=== PATIENT | female | born 1955 | race Caucasian/White ===

== ENCOUNTER → 2021-08-03 12:28 | Outpatient (CLI) | payer OTHER, SELFPAY ==
--- NOTE | 2021-08-03 | DI.MRI.S_ITS ---
PROCEDURE: MR CERVICAL SPINE WO CON INDICATIONS: Paresthesia of skin TECHNIQUE: Noncontrast sagittal T1 spin echo and T2 fast spin echo, sagittal STIR, foraminal oblique sagittal T2 fast spin echo, and axial gradient echo or T2 fast spin echo through the cervical spine. COMPARISON: None. FINDINGS: Image quality: Excellent. Alignment and Curvature: There is loss of normal cervical lordosis. There is mild grade 1 anterolisthesis of C3 on C4 , C4 on C5, and C7 on T1. Mild grade 1 retrolisthesis of C5 on C6 and C6 on C7. Bone Marrow: Marrow demonstrates normal overall signal. Moderate reactive signal throughout the endplates of the mid/lower cervical spine. Spinal Cord: Visualized spinal cord has normal size and signal. No cerebellar tonsillar herniation. Paraspinous Soft Tissues: No paravertebral masses. Prevertebral soft tissues are normal in thickness. C2-C3: Mild disc height loss. Moderate disc desiccation. Mild diffuse disc bulge. Mild facet and uncovertebral hypertrophy bilaterally. Mild canal stenosis. Mild left greater than right foraminal stenosis. C3-C4: Moderate disc desiccation. Mild disc height loss and diffuse disc bulge. Moderate facet and uncovertebral hypertrophy bilaterally. Moderate canal stenosis. Severe left and moderate right foraminal stenosis. Left C4 nerve root compression. C4-C5: Mild disc height loss. Moderate disc desiccation. Mild diffuse disc bulge/osteophyte. Moderate facet and uncovertebral hypertrophy bilaterally. Moderate canal stenosis. Severe bilateral foraminal stenosis with bilateral C5 nerve root compression. C5-C6: Moderate disc height loss and desiccation. Moderate diffuse disc bulge. Moderate facet and uncovertebral hypertrophy bilaterally. Moderate to severe canal stenosis. Mild cord flattening. Severe bilateral foraminal stenosis with bilateral C6 nerve root compression. C6-C7: Moderate disc height loss and desiccation. Moderate diffuse disc bulge. Moderate facet and uncovertebral hypertrophy bilaterally. Moderate canal stenosis. Severe bilateral foraminal stenosis. Bilateral C7 nerve root compression. C7-T1: Moderate disc height loss and desiccation. Mild diffuse disc bulge. Mild facet and uncovertebral hypertrophy bilaterally. Mild canal stenosis. Moderate bilateral foraminal stenosis. IMPRESSION: 1. Multilevel degenerative disc and facet disease, as well as uncovertebral hypertrophy. 2. Multilevel canal stenoses, worst at C5-C6, where there is mild cord flattening. 3. Multilevel foraminal stenoses, worst at C3-C4, C4-C5, C5-C6, and C6-C7 where there is associated intraforaminal nerve root compression. Dictated by: Rene Morfin M.D. on 08/03/2021 at 14:13 Approved by: Rene Morfin M.D. on 08/03/2021 at 14:17
== END ==
PROVIDERS: Referring Provider Internal Medicine; Visit Provider Internal Medicine
DX: M50.31 Other cervical disc degeneration, high cervical region (principal); M48.02 Spinal stenosis, cervical region; R20.2 Paresthesia of skin
CPT/HCPCS: 72141

== ENCOUNTER → 2021-11-01 10:03 | Outpatient (CLI) | payer OTHER, SELFPAY ==
--- NOTE | 2021-11-01 10:22 | DI.CT.S_ITS ---
PROCEDURE: CT LUMBAR SPINE WO CON INDICATIONS: Spinal stenosis, lumbar region TECHNIQUE: Noncontrast 3 mm thick sections acquired from the T12 level to the sacrum. Sagittal and coronal reformats were constructed. For radiation dose reduction, the following was used: automated exposure control. COMPARISON: [facility], MR, MR LUMBAR SPINE WITH/WITHOUT CONTRAST, 01/14/2020, 10:41. FINDINGS: Image quality: Excellent. Bones: There is normal bony alignment. No acute vertebral body compression fractures. No suspicious lytic or blastic bony lesions. No pars defects. Degenerative endplate changes noted particularly at L4-5. Grade 1 anterior spondylolisthesis noted at L3-4, degenerative. Convex left thoracolumbar scoliosis present. T12-L1: Disc height is preserved. No central or foraminal stenosis L1-L2: Disc height is preserved. Minor circumferential disc bulge results in mild central stenosis. No foraminal stenosis L2-L3: Disc space narrowing with circumferential disc bulge and hypertrophic facet joints results in moderate central stenosis. Moderate bilateral foraminal stenosis. L3-L4: Disc space narrowing with circumferential disc bulge and hypertrophic facet joints results in severe central stenosis. Moderate right and severe left foraminal stenosis L4-L5: Disc space narrowing and circumferential disc bulge with hypertrophic facet joints and ligamentum flavum hypertrophy results in severe central stenosis. Severe left and moderate right foraminal stenosis. L5-S1: Disc space narrowing with hypertrophic ligamentum flavum results in moderate central stenosis. Moderate right and mild left foraminal stenosis Soft tissues: No retroperitoneal masses or hematomas. Visualized aorta is normal in caliber. IMPRESSION: 1. Multilevel degenerative disc disease and arthropathy results in varying degrees of central and foraminal stenosis including severe central stenosis at L4-5, L3-4, and moderate central stenosis at L2-3 Approved by: Reddy Jean Baptiste M.D. on 11/01/2021 at 12:53
== END ==
PROVIDERS: PCP Internal Medicine; Referring Provider Physician Assistant; Visit Provider Physician Assistant
DX: M48.062 Spinal stenosis, lumbar region with neurogenic claudication (principal); M48.07 Spinal stenosis, lumbosacral region; M47.816 Spondylosis without myelopathy or radiculopathy, lumbar region; M51.36 Other intervertebral disc degeneration, lumbar region
CPT/HCPCS: 72131

== ENCOUNTER → 2021-11-10 09:44 | Outpatient (CLI) | payer OTHER, SELFPAY ==
[2021-11-10 11:38] LABS: COVID19 -Nasal RAPID Negative (Negative)
== END ==
PROVIDERS: PCP Internal Medicine; Visit Provider Family Medicine Sleep Medicine
DX: Z20.822 Contact with and (suspected) exposure to COVID-19 (principal)
CPT/HCPCS: 87635; C9803

== ENCOUNTER 2021-11-13 06:29 | Day surgery (SDC) | payer OTHER, SELFPAY ==
[2021-11-06 09:49] VITALS: BMI 20.8
[2021-11-13] VITALS (17 sets, daily range): BP systolic 109–149; BP diastolic 50–80; PULSE 66–88; RESP 12–20; TEMP 35.8–37.1; O2SAT 92–100; BMI 20.8
--- NOTE | 2021-11-13 | DI.RAD.S_ITS ---
PROCEDURE: XR LUMBAR SPINE 2-3V INDICATIONS: L3-4 L4-5 TLIF TECHNIQUE: 2 spot fluoroscopic intraoperative images of the lumbar spine were acquired. COMPARISON: [facility], CT, CT LUMBAR SPINE WO CON, 11/01/2021, 10:19. FINDINGS: Spot fluoroscopic intraoperative images demonstrate posterior fusion hardware extending from L3 through L5 with pedicle screws and interbody rods as well as disc spacers. IMPRESSION: Intraoperative images demonstrate posterior fixation hardware at the L3 through L5 levels. Dictated by: Leonard Lopez M.D. on 11/13/2021 at 17:02 Approved by: Leonard Lopez M.D. on 11/13/2021 at 17:04
--- NOTE | 2021-11-13 07:30 | SUR.PREOP ---
Spoke to Dr Nichole in OR#. Pt took 30mof Oxycontin this am when she normally would take 40mg. Pt with 15 year history of narcotic use. Pt also uses Advair and Albuterol and did not use them this morning. Vibha ordered.
[2021-11-13] MEDS: OXYCODONE ER 10 MG TAB PO (07:43)
[2021-11-13] MEDS: ALBUTEROL/IPRATROPIUM 3 ML AMPUL INH (07:43)
[2021-11-13] MEDS: ACETAMINOPHEN 325 MG TABLET 975 MG PO (07:43)
[2021-11-13] MEDS: LACTATED RINGERS 1,000 ML 42 ML IV ×2 (07:52→11:10)
--- NOTE | 2021-11-13 07:53 | PM.PREOP ---
Pre-operative Note COVID-19 COVID-19 status: Negative Result date/Date tested (Pos, Neg/Pending): 11/12/21 Criteria for continued procedure: Expected advancement of disease process, Possibility delay results in more complex future surgery or treatment, Increased loss of function, Continuing or worsening of significant or severe pain, Deterioration of the patient's condition or overall health and Delay expected to result in less-positive ultimate med/surg outcome Interval Note History & Physical reviewed/Exam performed by Physician: Yes Changes to H&P: No
--- NOTE | 2021-11-13 08:03 | SUR.OPER ---
Prone on spine table, head in foam head support, padded chest and pelvic supports, gel pad at knees, lower legs supported by pillows; nipples, genitalia and toes free of pressure, arms secured on foam padded arm boards at <90 degrees abduction. Tape over blanket at thigh secured to table.
[2021-11-13] MEDS: CEFAZOLIN 2 GM/20 ML SYRINGE IV ×2 (08:24→17:14)
[2021-11-13] MEDS: BUPIVACAINE 0.25% (PF) 60 ML, EPINEPHrine 0.3 MG INJ (08:55)
[2021-11-13] MEDS: BUPIVACAINE LIPOSOME 266 MG/20 ML VIAL INJ (12:00)
--- NOTE | 2021-11-13 12:07 | P.OP_ITS ---
Operative Date/Time/Diagnoses Date of procedure: 11/13/21 Time of procedure: 08:20 Pre-op diagnosis: 1. L3-4, L4-5 spinal stenosis with neurogenic claudication 2. L3-4, L4-5 spondylosis with radiculopathy Post-op diagnosis: same Procedure & Clinicians Procedure: 1. L3-4, L4-5 Postero-lateral and posterior interbody fusion 2. L3-4, L4-5 interbody cage placement. 3. L3-4, L4-5 decompressive laminectomy with bilateral facetecomies 4. L3-4, L4-5 Posterior segmental instrumentation 5. [place] of bone marrow from iliac crest 6. Utilization of microsurgical technique and operating microscope 7. Utilizations of robotic assisted navigation Same procedure as scheduled: Yes Indications: Patient has been having chronic back pain and worsening lumbar radiculopathy. Patient failed multiple conservative management with worsening pain weakness and numbness in her lower extremity. Patient has been having difficulty performing activity of daily living. After discussing risks benefits of treatment options, patient elected proceed with surgery. Surgeon: Margarita Fuller Multifold Operator: Ángela Almendarez Click Yes if Unassisted: No Anesthesia Type: General Operative Notes Closure Type: primary Specimen(s): none sent Prosthetic devices, grafts, tissues, transplants, or devices: Globus CREO MIS screws, RIse cages Applied: catheter Estimated Blood Loss (mL): 150 Blood products transfused: none Procedure in detail: Patient was seen in the preoperative area. Risks and benefits of the surgery was discussed with the patient. Informed consent was obtained from the patient and placed in the chart. Surgical site was marked. Patient was taken to the operative room. General anesthesia was administered. Prophylactic antibiotic was given to the patient less than 30 min before the incision was made. Patient was placed into a prone position on the Adin table. Patient's back was then prepped and draped in the sterile fashion. Time-out was performed at this time. After patient was prepped and draped, patient's PSIS was palpated and marked bilaterally. Small 1 cm incision was made over the PSIS for placement of the reference probes. Two trocar was placed into the PSIS 1 on each side. The reference probe was attached to the trocar of the reference apparatus. At this time the C-arm imaging was used to confirm AP and lateral of L3, L4-L5 vertebrae and merged the C-arm imaging using the [employer] robotic navigation system with the CT of the lumbar spine. After successful merging was completed and confirmed, skin marker was used to zaira out the skin incision using the [employer] robotic arm. Bilateral incision was made at this time. Pre templated trajectory was used and guided using the [employer] robotic navigation system for bilateral L3 L4, L5 pedicle screw placement. This was done by using the robotic arm to guide the high-speed bur to make a cortical entry point. Next a drill was placed also using the robotic arm and guided using the navigation system drilling partially through bilateral L3, L4, L5 pedicles. Next L3, L4, L5 pedicle screws it was pre templated and measured was placed onto the power train driver and inserted into the pedicles bilaterally. After all 6 screws were placed C-arm imaging was taken of both AP and lateral to confirm the placement. Excellent placement of the screws were confirmed and a matched precisely with the pre planned screw placement using the navigation system. MARs retractor was inserted using [employer] guidence. Globus MARS retractors was placed inside the incision and docked onto the L3, L4 lamina. Using microsurgical technique and operating microscope, a L3, L4 laminectomy and L3-4, L4-5 facetectomy was performed using a [place] rongeur. Patient was found have severe lateral recess and neural foramen stenosis which was fully de compressed after the laminectomy facetectomy. More than 75% of the facets were removed during the process of decompression rendering L3-4, L4-5 level grossly unstable and required a fusion procedure at the same time. The disc space at L3-4, L4-5 was identified, and a total diskectomy was performed at L3-4, L4-5 level. The endplates were decorticated using a rasp and shaver. The total diskectomy and decortication was performed at L3-4, L4-5 level in order to to accomplish a L3-4, L4-5 fusion. The local bone from the laminectomy and facetectomy was saved for local bone grafting. After the total diskectomy and decortication was completed, Trifecta bone graft material was combined with local bone that was harvested earlier. At this time, a separate skin is incision was made over the iliac crest. A Jamshidi needle was inserted into the iliac crest through a separate skin incision. 5 cc of bone marrow aspiration was obtained through the separate skin incision using a Jamshidi needle from the iliac crest. The bone marrow aspiration was combined with local bone and the Trifecta bone grafting material. The bone grafting material was placed into the L3-4, L4-5 interbody space along with expandable cages. One cage each was inserted into the L3-4 L4-5 interbody space along with bone graft material. The cage was expanded to its maximum height using the torque limiting screwdriver. The disc preparation as well as the cage insertion were also performed under navigation guidance. After the cage was placed, AP and lateral C-arm imaging was taken to confirm placement of the cage and excellent position was confirmed. Globus MARS retractor was inserted and docked onto the L3-4, L4-5 posterolateral gutter on the right side. Using the power drill, posterior-lateral decorticat ion was performed at L3-4, L4-5 level until bleeding cortical bone was identified. The remaining bone grafting material was placed into the L3-4, L4-5 posterior lateral gutter he order to accomplish posterolateral fusion at the L3- 4, L4-5 level. At this time the tulips were attached to the L3, L4-L5 pedicle screw shanks. After measuring the length of the rods, they were inserted into the tulips of the pedicle screws and locked in place using locking caps and torque limiting screwdriver bilaterally. Total 6 caps and 2 titanium rods was used in order to complete the posterior instrumentation construct. After all the hardware was placed, and confirmed with AP and lateral C-arm imaging, the wound was then irrigated with sterile normal saline and packed with Ray-Leopoldo gauze for 3 min to accomplish hemostasis. After the gauze was removed the deep fascia was closed with #1 Vicryl suture. The subcutaneous layer was closed with 2-0 Vicryl. The skin was closed with skin cindy. Patient tolerated the procedure well. There were no complications. Neuro monitoring system was used to monitor patient's neurologic status throughout entire procedure. There was no disturbance of the neural monitoring signals throughout the case. Complications: none Post-operative Condition: stable Disposition: PACU Plan for aftercare: Admit to inpatient hospital
[2021-11-13] MEDS: HYDROMORPHONE 2 MG INJ IV (12:50)
[2021-11-13] MEDS: hydrOXYzine 50 MG/ML INJ IM (12:51)
[2021-11-13] MEDS: OXYCODONE IR 5 MG TABLET 10 MG PO (12:52)
[2021-11-13] MEDS: OXYCODONE ER 10 MG TAB 30 MG PO (17:13)
[2021-11-13] MEDS: SODIUM CHLORIDE 0.9% 1,000 ML 100 ML IV (17:38)
--- NOTE | 2021-11-13 17:40 | PT-IP ANOTE ---
Checked on pt for PT eval ~1500 and pt was too groggy to meaningfully participate. Will follow up Saturday AM.
[2021-11-13] MEDS: hydrOXYzine pamoate 25 MG CAPSULE PO (17:43)
[2021-11-13] MEDS: HYDROMORPHONE 0.5 MG INJ IV ×2 (18:59→21:01)
[2021-11-13] MEDS: DOCUSATE 100 MG CAPSULE PO (20:40)
[2021-11-13] MEDS: SENNOSIDES 8.6 MG TABLET 17.2 MG PO (20:41)
[2021-11-13] MEDS: diphenhydrAMINE 50 MG/ML VIAL 25 MG IV (20:41)
[2021-11-13] MEDS: OXYCODONE IR 10 MG TABLET PO (20:41)
[2021-11-13] MEDS: MONTELUKAST 10 MG TABLET PO (21:18)
[2021-11-13] MEDS: BUDESONIDE 0.5 MG/2 ML NEB INH (22:14)
[2021-11-13] MEDS: ALBUTEROL 2.5 MG/3 ML NEB (ADULT) INH (22:14)
[2021-11-14] VITALS (11 sets, daily range): BP systolic 110–157; BP diastolic 62–77; PULSE 66–78; RESP 17–19; TEMP 36.6–37.9; O2SAT 92–96
[2021-11-14] MEDS: hydrOXYzine pamoate 25 MG CAPSULE PO ×3 (00:01→14:39)
[2021-11-14] MEDS: ACETAMINOPHEN 325 MG TABLET 650 MG PO ×3 (00:01→14:38)
[2021-11-14] MEDS: HYDROMORPHONE 0.5 MG INJ IV ×3 (00:01→11:54)
[2021-11-14] MEDS: OXYCODONE IR 10 MG TABLET PO ×3 (00:02→10:01)
[2021-11-14] MEDS: CEFAZOLIN 2 GM/20 ML SYRINGE IV (00:02)
[2021-11-14] MEDS: SODIUM CHLORIDE 0.9% 1,000 ML 100 ML IV (04:09)
[2021-11-14 05:08] LABS: Hematocrit 31.7 % (36-46); Hemoglobin 10.7 g/dL (12.0-16.0)
[2021-11-14] MEDS: LEVOTHYROXINE 100 MCG TABLET PO (06:54)
--- NOTE | 2021-11-14 07:18 | PM.PNPO.1 ---
Subjective Subjective Date Patient Seen: 11/14/21 Time Patient Seen: 07:18 Interval history: Patient's pain is been severe overnight. Denies fever or chills. No nausea or vomiting. Exam Vital Signs (past 8 hours): - 11/14/21 01:00 11/14/21 05:00 Temperature 97.9 F 98.8 F Pulse Rate 66 68 Respiratory Rate 18 18 Blood Pressure 132/68 141/74 H Pulse Oximetry 96 96 Oxygen Delivery Method Room Air Oxygen Flow Rate 0 Narrative Exam Narrative: 66-year-old female resting comfortably in bed in no apparent distress. Dressing is Clean, dry, intact.. Motor functions intact bilateral lower extremities. Const General: cooperative Orientation: alert Resp Effort & Inspection: normal respiratory effort and able to speak in complete sentences Objective Labs Result Diagrams: 11/14/21 04:42 Labs: Laboratory Results - last 24 hr 11/14/21 04:42 Hgb 10.7 L Hct 31.7 L PFSH Medical History Asthma Chronic, continuous use of opioids COPD (chronic obstructive pulmonary disease) Current every day smoker Depression Esophageal spasm GERD (gastroesophageal reflux disease) History of alcoholism History of left heart catheterization (08/02/21) HTN (hypertension) Hyponatremia Hypothyroid Infected tooth (11/03/21) Lung abnormality (2007) Other secondary scoliosis, lumbar region Palpitations RBBB (right bundle branch block with left anterior fascicular block) Spinal stenosis Spondylolisthesis Suspected sleep apnea Surgical History History of surgery on left wrist (2014) Social History household members: spouse and children Smoking Status: Current every day smoker alcohol intake: current Assessment & Plan Post-op Postoperative Procedures: Procedures Operation Date: 11/13/21 07:45 Actual Procedure Side Surgeon p L3-4, L4-5 TLIF w. posterior instrumentation-Robot Margarita Fuller MD Postoperative day: 1 Postoperative status: marginal pain control Postoperative status narrative: Stable Postoperative plan: routine post-op care Postoperative plan narrative: Mobilize as physical therapy Multimodal pain management Disposition home today or tomorrow
--- NOTE | 2021-11-14 08:04 | PC.NURSE ---
s/p tlif. patient + CSM checks, reports 8-10/10 BTP thru the noc. covered pain w/ prn dilauded, oxy and tylenol. SCD's applied, dressing to lower spine is CDI. IVF, no n/v. reports slight tingling to left upper thigh. states this is slowly improving thru the NOC.
[2021-11-14] MEDS: DOCUSATE 100 MG CAPSULE PO (08:37)
[2021-11-14] MEDS: METOPROLOL ER 25 MG TABLET PO (08:37)
[2021-11-14] MEDS: AMLODIPINE 5 MG TABLET PO (08:37)
[2021-11-14] MEDS: MAGNESIUM OXIDE 400 MG TABLET PO (08:37)
[2021-11-14] MEDS: LORATADINE 10 MG TABLET PO (08:37)
[2021-11-14] MEDS: OXYCODONE ER 20 MG TAB 40 MG PO (08:38)
[2021-11-14] MEDS: MAGNESIUM HYDROXIDE 30 ML UDC PO (09:01)
[2021-11-14] MEDS: BUDESONIDE 0.5 MG/2 ML NEB INH (09:13)
[2021-11-14] MEDS: ALBUTEROL 2.5 MG/3 ML NEB (ADULT) INH ×2 (09:14→13:44)
--- NOTE | 2021-11-14 09:37 | PT.IIE ---
Current Diagnoses Other secondary scoliosis, lumbar region (11/13/21) Spondylolisthesis, lumbar region (11/13/21) Spinal stenosis, lumbar region with neurogenic claudication (11/13/21) Surgery Performed Operation Date: 11/13/21 07:45 Actual Procedures p L3-4, L4-5 TLIF w. posterior instrumentation-Robot - Margarita Fuller MD Medical History (Last Reviewed 11/14/21 @ 07:19 by Jas Lynn PA-C) Asthma Chronic, continuous use of opioids COPD (chronic obstructive pulmonary disease) Current every day smoker Depression Esophageal spasm GERD (gastroesophageal reflux disease) History of alcoholism History of left heart catheterization (08/02/21) HTN (hypertension) Hyponatremia Hypothyroid Infected tooth (11/03/21) Lung abnormality (2007) Other secondary scoliosis, lumbar region Palpitations RBBB (right bundle branch block with left anterior fascicular block) Spinal stenosis Spondylolisthesis Suspected sleep apnea Physical Therapy Inpatient Evaluation/Re-Eval M1 PT/OT-IP Prior Functional Status Start: 11/14/21 08:15 Freq: NEEDED Status: Active Protocol: Document 11/14/21 09:37 AW (Rec: 11/14/21 10:46 AW [id number]) Medical Review Prior Functional Status Medical History Reviewed Yes Communication WNL. Pt is an effective verbal communicator. Mobility and Gait Pt reports independent mobility without assistive device. Activities of Daily Living and IADL's Independent. Pt drives. Social History Household Members spouse,family,children Living Arrangements House Number of Floors (Floors) Two Floors Number of Stairs To Enter/Railing? 7 TRENT with wide B rails at back entrance. Pt stays on the main/scow hand. Home Environment Standard Height Toilet,High Toilet,Walk in Shower,Built-In Shower Seat Home Equipment Four Wheel Walker,Straight Cane,Manual Wheelchair,Hand Held Shower,Long Handled Sponge,Long Handled Shoe Horn, Biodiesel Division Manager,Sock Aid Additional Social History Comment Pt lives with her spouse, Sixto, adult children (ages 18 and 22), and her sister, Melissa . She states her bed is tall and she sometimes needs a step stool to get in. She also has a recliner. M2 PT-IP Current Condition Start: 11/14/21 08:15 Freq: NEEDED Status: Active Protocol: Document 11/14/21 09:37 AW (Rec: 11/14/21 10:46 AW [id number]) Physical Therapy Current Condition Current Condition Evaluation Date 11/14/21 Treatment Diagnosis s/p L3-4 L4-5 TLIF; difficulty in walking Onset Date 11/13/21 M3 PT-IP Subjective Start: 11/14/21 08:15 Freq: NEEDED Status: Active Protocol: Document 11/14/21 09:37 AW (Rec: 11/14/21 10:46 AW [id number]) Subjective Physical Therapy Visit Type Type Initial Evaluation Visit Start Time 09:15 Visit Stop Time 09:37 Total Visit Minutes 22 Notes Co-eval with OT for pt energy conservation and high reported pain level. Physical Therapy Visit Comments Patient Comments Pt is willing to participate with PT Patient Goals Return home with family support Therapy Pain Assessment Pain When Pain Assessed At Rest Pain Present Pain Present Pain Reported Location Lower Back Intensity 8 Scale Used reduced to 7/10 after mobility Pain Management Techniques Apply Cold,Distraction, Modification of Treatment,Re- positioning,Timing of Activity with Medications M4 PT-IP Mobility and Gait Start: 11/14/21 08:15 Freq: NEEDED Status: Active Protocol: Document 11/14/21 09:37 AW (Rec: 11/14/21 10:46 AW [id number]) PT-Bed Mobility Assessment Rolling Type of Rolling Log Rolling,Roll to Right Level of Assist Minimal Assistance,1 Person Assistance Supine to Sit Supine to Sit Minimal Assistance,1 Person Assistance Scooting Scooting to Edge of Bed Standby Assistance PT-Transfer Assessment Sit to and From Stand Sit to and from Stand Minimal Assistance,1 Person Assistance,Use of Upper Extremities Equipment Transfer Assistive Device Gait Belt,Front Wheeled Walker Orthotic/Prosthetic Devices or Brace: No Transfers Transfer Destination Chair Transfer Technique Stand Step Pivot Transfer Ability Level of Assist Minimal Assistance,1 Person Assistance,Use of Upper Extremities Comments Mobility Comments Pt was lying in bed as PT and OT arrived. BP 134/71 HR 79. PT instructed pt on post op precautions and log roll technique. Pt needed min A to roll to her right side and sit up EOB. She was able to scoot forward and then she stood min A with FWW for support. She shifted weight laterally and did not appreciate any strength difference side to side. She transferred to the chair min A and cues for hip hinge on descent. Pt was able to scoot back and forth on the chair. She stood again min A and used FWW to walk in the room CGA, stopping at the sink for hygiene care before returning to the chair. Pt was left with OT for further assessment. Gait Assessment Gait Gait Assistance Required: Contact Guard Assist Distance (Feet) 15 Assistive Devices Assistive Device Gait Belt,Front Wheeled Walker Orthotic/Prosthetic Devices or Brace: No Gait Deviations General Gait Pattern Antalgic,Decreased Stride Length,Decreased Feet Clearance Factors Limiting Gait Function Factors Limiting Gait Function Decreased Activity Tolerance, Decreased Strength,Limited Range of Motion,Pain Comments Gait Comments Gait was antalgic but functional. Pt limited in ambulation by pain. Stair Climbing Assessment Comments Stair Climbing Comments Not assessed. Pt will need to do stair training before discharge. PT-Balance Assessment Sitting Balance and Reactions Static Sitting Balance Ability Good Dynamic Sitting Balance Ability Good Standing Balance and Reactions Static Standing Balance Ability Good Dynamic Standing Balance Ability Fair Device Used FWW M5 PT-IP Objective Assessments Start: 11/14/21 08:15 Freq: NEEDED Status: Active Protocol: Document 11/14/21 09:37 AW (Rec: 11/14/21 10:46 AW [id number]) Orientation Orientation/Cognition Level of Alertness Alert Orientation Name,Day of Week,Place, Situation Language Function Ability No Deficits Noted Safety Awareness Understands Safety Issues Memory Description No Deficits Noted Gross Range of Motion Lower Extremity ROM Assessment Within Functional Limits Strength Lower Extremity Strength Assessment Within Functional Limits Sensation Assessment Sensation Gross Sensation WNL Muscle Tone Muscle Tone WNL Yes M6 PT-IP Treatment Start: 11/14/21 08:15 Freq: NEEDED Status: Active Protocol: Document 11/14/21 09:37 AW (Rec: 11/14/21 10:46 AW [id number]) Physical Therapy Treatment Education Education Provided Precautions,Weight Bearing Status,Post-Op Packet,Safety Other Treatments Other Treatment Performed Educated pt extensively on back precautions, log roll, and recommendation for use of FWW at home. M7 PT-IP Assessment and Plan Start: 11/14/21 08:15 Freq: NEEDED Status: Active Protocol: Document 11/14/21 09:37 AW (Rec: 11/14/21 10:46 AW [id number]) PT Summary Assessment and Plan Potential Rehabilitation Potential Good Status of Condition at Evaluation Evolving Summary Impairments Pain,ROM,Strength,Balance,Bed Mobility,Transfers,Gait, Activity Tolerance Assessment Summary Belkis is a 66 yo woman seen for PT evaluation on POD1 following L3-4 L4-5 TLIF. She is independent in all regards at baseline. She required min assist for bed mobility, transfers, and short distance gait with FWW during this assessment. She has her family at home to assist. PT anticipates she will be safe to discharge home with assist once medically stable. She must clear stair training and would benefit from caregiver training prior to discharge. Goals Bed Mobility Goal Standby Assistance Transfer Goal Standby Assistance,Front Wheeled Walker Gait Goal Standby Assistance,Front Wheel Walker Gait Distance 100 Other Goals - up/down 7 steps with unilaterl rail CGA Days to Meet Goals 3 Frequency of Treatment Frequency Of Treatment Twice a Day Treatment Plan Physical Therapy Treatment Plan Bed Mobility Training,Transfer Training,Gait Training, Therapeutic Exercise,Balance Retraining,Post Op Education, Discharge Planning,Hot or Cold Pack,Neuromuscular Re-ed Other Recommendations and Next Treatment review precautions; gait with Focus FWW; stairs with spouse when able Precautions Lumbar Precautions Log Roll,No Twisting,Limit Bending,Lifting Restriction of 10 lbs,Gait Belt above Incisional Area Recommendations To Nursing Amount of Assist Needed 1 Person Assist Discharge Recommendations PT Discharge Recommendations Home with Assistance Equipment Needed for Home Before FWW Discharge Transportation Needs at Discharge Private Vehicle
--- NOTE | 2021-11-14 09:49 | OT.IP.EVAL ---
Current Diagnoses Other secondary scoliosis, lumbar region (11/13/21) Spondylolisthesis, lumbar region (11/13/21) Spinal stenosis, lumbar region with neurogenic claudication (11/13/21) Surgery Performed Operation Date: 11/13/21 07:45 Actual Procedures p L3-4, L4-5 TLIF w. posterior instrumentation-Robot - Margarita Fuller MD Past Medical History (Last Reviewed 11/14/21 @ 12:18 by Jas Lynn PA-C) Asthma Chronic, continuous use of opioids COPD (chronic obstructive pulmonary disease) Current every day smoker Depression Esophageal spasm GERD (gastroesophageal reflux disease) History of alcoholism History of left heart catheterization (08/02/21) History of surgery on left wrist (2014) HTN (hypertension) Hyponatremia Hypothyroid Infected tooth (11/03/21) Lung abnormality (2007) Other secondary scoliosis, lumbar region Palpitations RBBB (right bundle branch block with left anterior fascicular block) Spinal stenosis Spondylolisthesis Suspected sleep apnea Surgical History (Last Reviewed 11/14/21 @ 12:18 by Jas Lynn PA-C) History of surgery on left wrist (2014) Occupational Therapy Inpatient Evaluation/Re-Eval M1 PT/OT-IP Prior Functional Status Start: 11/14/21 08:15 Freq: NEEDED Status: Active Protocol: Document 11/14/21 09:37 AW (Rec: 11/14/21 10:46 AW [id number]) Medical Review Prior Functional Status Medical History Reviewed Yes Communication WNL. Pt is an effective verbal communicator. Mobility and Gait Pt reports independent mobility without assistive device. Activities of Daily Living and IADL's Independent. Pt drives. Social History Household Members spouse,family,children Living Arrangements House Number of Floors (Floors) Two Floors Number of Stairs To Enter/Railing? 7 TRENT with wide B rails at back entrance. Pt stays on the main/entry level software engineer. Home Environment Standard Height Toilet,High Toilet,Walk in Shower,Built-In Shower Seat Home Equipment Four Wheel Walker,Straight Cane,Manual Wheelchair,Hand Held Shower,Long Handled Sponge,Long Handled Shoe Horn, Merchandising Professor,Sock Aid Additional Social History Comment Pt lives with her spouse, Sixto, adult children (ages 18 and 22), and her sister, Melissa . She states her bed is tall and she sometimes needs a step stool to get in. She also has a recliner. M2 OT-IP Current Condition Start: 11/14/21 12:18 Freq: Status: Active Protocol: Document 11/14/21 09:15 [facility] (Rec: 11/14/21 12:30 [facility] [id number]) Occupational Therapy Current Condition Current Condition Evaluation Date 11/13/21 Treatment Diagnosis S/p L3-4, L4-5 TLIF Diagnosis Onset Date 11/13/21 Post Operative Precautions Lumbar Precautions Log Roll,No Twisting,Limit Bending,Lifting Restriction of 10 lbs,Gait Belt above Incisional Area M3 OT- IP Subjective and Pain Start: 11/14/21 12:18 Freq: Status: Active Protocol: Document 11/14/21 09:15 [facility] (Rec: 11/14/21 12:30 [facility] [id number]) OT- Subjective Occupational Therapy Visit Type Type Initial Evaluation Visit Start Time 09:15 Visit Stop Time 09:49 Total Visit Minutes 34 Occupational Therapy Visit Comments Patient Comments Pt agreed to get up for OT eval. Pt's present in the room. Patient/Caregiver Goals TO go home. OT Pain Assessment Pain When Pain Assessed At Rest Pain Present Pain Present Pain Reported Location Lower Back Intensity 8 Scale Used Numeric (0 - 10) M4 OT- IP ADL's Start: 11/14/21 12:18 Freq: Status: Active Protocol: Document 11/14/21 09:15 [facility] (Rec: 11/14/21 12:30 [facility] [id number]) OT [id number] Comments OT Self-Feeding Comments Not at meal time. OT ADL-Grooming Comments OT Grooming Comments Not performed. OT ADL-Oral Care Comments Oral Care Comments Pt not wanting to do at this time as just wanting to sit down to the recliner. Able to educate best to spit into a cup to best follow her back precautions. OT ADL-Dressing Comments OT Dressing Comments Pt has LB dressing equipment at home and able to educated pt of use for her needs. OT ADL-Toileting Comments OT Toileting Comments Iyer in place. Pt has to get up to use the bathroom 2-3 times and night and would benefit from getting a BSC. OT ADL-Bathing Comments OT Bathing Comments Not performed. M5 OT- IP IADL's Start: 11/14/21 12:18 Freq: Status: Active Protocol: Document 11/14/21 09:15 [facility] (Rec: 11/14/21 12:30 [facility] [id number]) OT-Instrumental Activities of Daily Living Home Safety Awareness Awareness of Need for Assistance at Home Good Awareness Ability to Problem Solve Emergency Able to Problem Solve Situations Home Safety Comments Pt has a supportive that will be able to assist for all her needs as needed. Exercise Planner Exercise Planner Caregiver Provides Assist M6 OT- IP Functional Cognition Start: 11/14/21 12:18 Freq: Status: Active Protocol: Document 11/14/21 09:15 [facility] (Rec: 11/14/21 12:30 [facility] [id number]) Cognitive Factors Limiting Selfcare Function Cognitive Ability Level of Alertness Alert Patient Orientation Name,Place,Situation Attention Span Ability Capable of Focused Attention, Capable of Sustained Attention Ability to Follow Commands Able to Follow One Step Commands Safety Awareness Decreased Recall of Precautions Cognitive Comments Cognitive Assessment Comments Pt able to follow directions for mobility and ADl needs and needing cues to recall her back precautions. OT- Vision and Hearing OT- Hearing Assessment OT- Hearing Assessment WFL OT- Vision Assessment Visual Acuity Glasses For Reading M7 OT- IP Mobility and Balance Start: 11/14/21 12:18 Freq: Status: Active Protocol: Document 11/14/21 09:15 [facility] (Rec: 11/14/21 12:30 [facility] [id number]) OT- Bed Mobility Assessment Rolling Type of Rolling Roll to Right Level of Assistance Minimal Assistance Supine to Sit Supine to Sit Assist Minimal Assistance OT-Transfer Assessment Sit to and From Stand Sit to and from Stand Minimal Assistance Transfers Transfer Ability Minimal Assistance Technique Transfer Destination Bed,Chair Devices Transfer Assistive Devices Gait Belt,Front Wheeled Walker Comments Mobility Comments RIVKA for all mobility needs and heavy use of her arms on the FWW. OT- Balance Assessment Sitting Balance and Reactions Static Sitting Balance Ability Good Dynamic Sitting Balance Ability Fair Standing Balance and Reactions Static Standing Balance Ability Fair M8 OT- IP Objective Assessments Start: 11/14/21 12:18 Freq: Status: Active Protocol: Document 11/14/21 09:15 [facility] (Rec: 11/14/21 12:30 [facility] [id number]) OT-Muscle Tone Assessment Muscle Tone WNL Yes M9 OT- IP Assessment and Plan Start: 11/14/21 12:18 Freq: Status: Active Protocol: Document 11/14/21 09:15 [facility] (Rec: 11/14/21 12:30 [facility] [id number]) OT Summary Assessment and Plan Potential Rehabilitation Potential Good Analytic Complexity at Evaluation Low Summary OT Impairments Pain,Balance,Functional Mobility,Grooming,Dressing, Toileting,Bathing,Toilet Transfers,Shower Transfers, Activity Tolerance Progress Towards Goals Slow Progress due to Medical Issues,Slow Progress due to Activity Tolerance Assessment Summary Pt low complexity and main barriers are steps, high bed, and now needing one person to assist with her needs. Pt has a supportive that will be there to assist with her needs. Pt to go home when medically stable. Goals Grooming Goal Independent Dressing Goal Independent Toileting Goal Independent Bathing Goal Independent Toilet Transfer Goal Independent Shower Transfer Goal Independent Days to Meet Goals 7 Frequency of Treatment Frequency Of Treatment Once a Day Treatment Plan OT Treatment Plan ADL Training,Functional Mobility,Patient/Family Education,Discharge Planning Other Treatment Recommendations and Next shower and caregiver training Treatment Focus Discharge Recommendations OT Discharge Recommendations Home with 18/02 Assist Available Home Equipment Needs BSC, FWW Transportation Needs at Discharge Private Vehicle
--- NOTE | 2021-11-14 12:16 | PM.DS.1 ---
History of Present Illness History of Present Illness Date Patient Seen: 11/14/21 Time Patient Seen: 12:16 Chief complaint: Back pain Narrative: See progress note Discharge Providers Provider Discharge Date: 11/14/21 Primary care physician: Joann Samuels MD Consults: 11/13/21 07:24 Consult to Respiratory Therapy Evaluate & Treat Comment: Physician Instructions: Evaluate and treat 11/13/21 13:49 Consult to Occupational Therapy Evaluate & Treat Comment: Physician Instructions: Evaluate and treat Consult to Physical Therapy Evaluate & Treat Comment: Physician Instructions: Evaluate and Treat Discharge provider: Jas Lynn PA-C Summary Hospital Course Discharge Diagnosis: 1. L3-4, L4-5 spinal stenosis with neurogenic claudication 2. L3-4, L4-5 spondylosis with radiculopathy Chronic pain Hospital Course: 1. L3-4, L4-5 Postero-lateral and posterior interbody fusion 2. L3-4, L4-5 interbody cage placement. 3. L3-4, L4-5 decompressive laminectomy with bilateral facetecomies 4. L3-4, L4-5 Posterior segmental instrumentation 5. [place] of bone marrow from iliac crest 6. Utilization of microsurgical technique and operating microscope 7. Utilizations of robotic assisted navigation Same procedure as scheduled: Yes Indications: Patient has been having chronic back pain and worsening lumbar radiculopathy. Patient failed multiple conservative management with worsening pain weakness and numbness in her lower extremity.? Patient has been having difficulty performing activity of daily living.? After discussing risks benefits of treatment options, patient elected proceed with surgery. Surgeon: Margarita Fuller Business Information Analyst: Ángela Almendarez Click Yes if Unassisted: No Anesthesia Type: General Operative Notes Closure Type: primary Specimen(s): none sent Prosthetic devices, grafts, tissues, transplants, or devices: Globus CREO MIS screws, RIse cages Applied: catheter Estimated Blood Loss (mL): 150 Blood products transfused: none Patient admitted to the hospital for the above-mentioned procedure. Patient consented to the same. Patient underwent lumbar fusion November 13, 2021. Patient back in her room recovering well as in stable condition. Patient worked with physical therapy. Patient is progressing as expected. Patient will be discharged home today in stable condition. Exam Vital Signs (past 8 hours): - 11/14/21 05:00 11/14/21 07:00 11/14/21 08:37 Temperature 98.8 F 98.2 F Pulse Rate 68 73 77 Respiratory Rate 18 17 Blood Pressure 141/74 H 157/69 H 137/68 Pulse Oximetry 96 94 11/14/21 09:23 11/14/21 10:57 Temperature 98.7 F Pulse Rate 78 71 Respiratory Rate 18 18 Blood Pressure 123/77 Pulse Oximetry 95 95 Oxygen Delivery Method Room Air Oxygen Flow Rate 0 Narrative Exam Narrative: See progress note Objective Labs Result Diagrams: 11/14/21 04:42 Labs: Laboratory Results - last 24 hr 11/14/21 04:42 Hgb 10.7 L Hct 31.7 L PFSH Medical History Asthma Chronic, continuous use of opioids COPD (chronic obstructive pulmonary disease) Current every day smoker Depression Esophageal spasm GERD (gastroesophageal reflux disease) History of alcoholism History of left heart catheterization (08/02/21) HTN (hypertension) Hyponatremia Hypothyroid Infected tooth (11/03/21) Lung abnormality (2007) Other secondary scoliosis, lumbar region Palpitations RBBB (right bundle branch block with left anterior fascicular block) Spinal stenosis Spondylolisthesis Suspected sleep apnea Surgical History History of surgery on left wrist (2014) Social History household members: spouse, family and children Smoking Status: Current every day smoker alcohol intake: current Discharge Assessment & Plan Assessment and Plan Assessment: Patient progressing as expected Plan of Treatment: Discharge home today in stable condition Discharge Plan Discharge Plan Patient Disposition: Home Provider Discharge Comment: Discharge home after her afternoon physical therapy Discharge orders & Medications Discharge Orders: Discharge (Order); Ordered 11/14/21 Ordered By: Jas Lynn Prescriptions: New hydromorphone 2 mg Tablet 2 mg PO Q6HR PRN (Reason: Pain, Severe (7-10)) Qty: 30 0RF docusate sodium 100 mg Capsule 100 mg PO BID Qty: 20 0RF hydroxyzine pamoate 25 mg Capsule 25 mg PO Q4HR PRN (Reason: Nausea And Vomiting) Qty: 30 0RF oxycodone 10 mg Tablet 10 mg PO Q3HR PRN (Reason: Pain, Severe (7-10)) Qty: 60 0RF Continued amlodipine 5 mg Tablet 5 mg PO DAILY 0RF levothyroxine [Synthroid] 100 mcg Tablet 100 mcg PO DAILY 0RF fluticasone propion-salmeterol [Advair Diskus] 500-50 mcg/dose Blister With Device 1 inh INHALATION Q12H 0RF montelukast 10 mg Tablet 10 mg PO BEDTIME 0RF metoprolol succinate 25 mg Tablet Extended Release 24 Hr 25 mg PO DAILY 0RF albuterol sulfate [ProAir HFA] 90 mcg/actuation Hfa Aerosol Inhaler 2 puff INHALATION Q4-6H PRN (Reason: Shortness Of Breath) 0RF ondansetron 4 mg Tablet,Disintegrating 4 mg PO QAM 0RF loratadine 10 mg Tablet 10 mg PO DAILY 0RF magnesium oxide 400 mg magnesium Capsule 400 mg PO DAILY 0RF oxycodone 10 mg Tablet,Oral Only,Ext.Rel.12 Hr 40 mg PO DAILY 0RF Label Comments: 40mg qam, 30mg bedtime Rx Instructions: 40mg am oxycodone 10 mg Tablet Extended Release 12 Hr 30 mg PO QACDINNER 0RF Rx Instructions: 30mg at dinner Discontinued oxycodone-acetaminophen 10-325 mg Tablet 1 tab PO Q4H 0RF Label Comments: usually takes 1 tab 4 times a day Follow up/Referrals: Joann Samuels MD [Primary Care Provider] - Margarita Fuller MD [Physician] - (2 weeks) Diet/Activity/Treatments Diet: Diet as Tolerated Activity: Limit bending, twisting, lifting Skin/Wound/Dressing Care Report to your healthcare provider any signs of infection, such as:: chills, fever, increased pain, unusual drainage and unusual redness Dressing: Keep dressing clean and dry Visit Report/Discharge Packet Instructions: DI for Transforaminal Lumbar Interbody Fusion Stand Alone Forms: Surgery Discharge Discharge Data Primary Care Provider: Joann Samuels Attending Provider: Margarita Fuller
--- NOTE | 2021-11-14 14:33 | PT.IPTN ---
Current Diagnoses Other secondary scoliosis, lumbar region (11/13/21) Spondylolisthesis, lumbar region (11/13/21) Spinal stenosis, lumbar region with neurogenic claudication (11/13/21) Surgery Performed Operation Date: 11/13/21 07:45 Actual Procedures p L3-4, L4-5 TLIF w. posterior instrumentation-Robot - Margarita Fuller MD Physical Therapy Treatment Note M2 PT-IP Current Condition Start: 11/14/21 08:15 Freq: NEEDED Status: Active Protocol: Document 11/14/21 09:37 AW (Rec: 11/14/21 10:46 AW [id number]) Physical Therapy Current Condition Current Condition Evaluation Date 11/14/21 Treatment Diagnosis s/p L3-4 L4-5 TLIF; difficulty in walking Onset Date 11/13/21 M3 PT-IP Subjective Start: 11/14/21 08:15 Freq: NEEDED Status: Active Protocol: Document 11/14/21 13:57 KS (Rec: 11/14/21 15:36 KS [id number]) Subjective Physical Therapy Visit Type Type Treatment Note Visit Start Time 13:57 Visit Stop Time 14:33 Total Visit Minutes 36 Notes Pts spouse present for caregiver training Number of ELEMENTARY SPECIAL EDUCATION TEACHER Visits 1 Physical Therapy Visit Comments Patient Comments Pt is willing to participate with PT Patient Goals Return home with family support Therapy Pain Assessment Pain When Pain Assessed At Rest Pain Present Pain Present Pain Reported Location Lower Back Intensity 8 Scale Used reduced to 7/10 after mobility Pain Management Techniques Distraction,Modification of Treatment,Re-positioning, Timing of Activity with Medications M4 PT-IP Mobility and Gait Start: 11/14/21 08:15 Freq: NEEDED Status: Active Protocol: Document 11/14/21 13:57 KS (Rec: 11/14/21 15:36 KS [id number]) PT-Bed Mobility Assessment Rolling Type of Rolling Log Rolling,Roll to Right Level of Assist Contact Guard Assistance,1 Person Assistance Supine to Sit Supine to Sit Minimal Assistance,1 Person Assistance Sit to Supine Sit to Supine Minimal Assistance,1 Person Assistance Scooting Scooting to Edge of Bed Standby Assistance PT-Transfer Assessment Sit to and From Stand Sit to and from Stand Minimal Assistance,1 Person Assistance,Use of Upper Extremities Equipment Transfer Assistive Device Gait Belt,Front Wheeled Walker Orthotic/Prosthetic Devices or Brace: No Transfers Transfer Destination Bed,Chair,Toilet Transfer Technique Pt ambulated w/ FWW Transfer Ability Level of Assist Minimal Assistance,1 Person Assistance,Use of Upper Extremities Comments Mobility Comments Pt in chair w/ spouse in room upon arrival and reporting 8/ 10 pain and requesting to use toilet. Min A for sit<>stand w / cues for hand placement. Pt ambulated ~10 ft to toilet CGA . After voiding, pt sit<>stand Min A from toilet and ambulated ~100 ft to practice stairs w/ FWW CGA w/ cues for upright posture. Pt w/ heavy weight bearing through BUE w/ FWW. Pt ascended/descended 3 steps x2 w/ L rail ascending CGA by ELEMENTARY SPECIAL EDUCATION TEACHER on first set and by on second set. She then ambulated ~100 ft back to room w/ FWW CGA and cues provided by pts . Upon return to room, she performed bed mobility w/ Min A provided by her w/ cues from this ELEMENTARY SPECIAL EDUCATION TEACHER. Pt then transferred back to chair CGA. Pt and her state they feel safe to return home. Gait Assessment Gait Gait Assistance Required: Contact Guard Assist Distance (Feet) 200 Assistive Devices Assistive Device Gait Belt,Front Wheeled Walker Orthotic/Prosthetic Devices or Brace: No Gait Deviations General Gait Pattern Antalgic,Decreased Stride Length,Decreased Feet Clearance Factors Limiting Gait Function Factors Limiting Gait Function Decreased Activity Tolerance, Decreased Strength,Limited Range of Motion,Pain Comments Gait Comments Cues for upright posture. Stair Climbing Assessment Evaluation Level of Assist On Stairs Contact Guard Assistance,1 Person Assistance Devices Stair Climbing Assistive Devices Left Railing Technique/Endurance Stair Climbing Direction Ascend and Descend Stair Climbing Technique Step to Step Number of Steps Climbed 3 Stair Climbing Set # Repetitions (reps) 2 Comments Stair Climbing Comments Pt ascended/descended 6 steps total w/ L rail ascending and CGA provided by . Pt and state they feel safe to complete steps leadng into home. PT-Balance Assessment Sitting Balance and Reactions Static Sitting Balance Ability Good Dynamic Sitting Balance Ability Good Standing Balance and Reactions Static Standing Balance Ability Good Dynamic Standing Balance Ability Fair Device Used FWW M5 PT-IP Objective Assessments Start: 11/14/21 08:15 Freq: NEEDED Status: Active Protocol: Document 11/14/21 09:37 AW (Rec: 11/14/21 10:46 AW [id number]) Orientation Orientation/Cognition Level of Alertness Alert Orientation Name,Day of Week,Place, Situation Language Function Ability No Deficits Noted Safety Awareness Understands Safety Issues Memory Description No Deficits Noted Gross Range of Motion Lower Extremity ROM Assessment Within Functional Limits Strength Lower Extremity Strength Assessment Within Functional Limits Sensation Assessment Sensation Gross Sensation WNL Muscle Tone Muscle Tone WNL Yes M6 PT-IP Treatment Start: 11/14/21 08:15 Freq: NEEDED Status: Active Protocol: Document 11/14/21 13:57 KS (Rec: 11/14/21 15:36 KS [id number]) Physical Therapy Treatment Education Education Provided Precautions,Weight Bearing Status,Post-Op Packet,Safety Other Treatments Other Treatment Performed Educated pt extensively on back precautions, log roll, and recommendation for use of FWW at home. Dispensed FWW. Discussed outpatient rehab for future. M7 PT-IP Assessment and Plan Start: 11/14/21 08:15 Freq: NEEDED Status: Active Protocol: Document 11/14/21 13:57 KS (Rec: 11/14/21 15:36 KS [id number]) PT Summary Assessment and Plan Potential Rehabilitation Potential Good Status of Condition at Evaluation Evolving Summary Impairments Pain,ROM,Strength,Balance,Bed Mobility,Transfers,Gait, Activity Tolerance Assessment Summary Pt requiring Min A for bed mobility and sit<>Stand w/ FWW w/ cues for hand placement during transfers and cues for upright posture during ambulation. Able to recall 3/3 spinal precautions. She ambulated ~200 ft and ascended /descended 6 steps total and her was able to assist her and provide cues appropriately Pt shakey and reporting 8/10 pain but wanting to participate. Her was able to provide assist w/ bed mobility, gait belt application, transfers, ambulation, and stairs. Dispensed FWW for home use and recommended BSC for pts use at nighttime. Pt will benefit from outpatient rehab when appropriate to improve strength and stability. Goals Bed Mobility Goal Standby Assistance Transfer Goal Standby Assistance,Front Wheeled Walker Gait Goal Standby Assistance,Front Wheel Walker Gait Distance 100 Other Goals - up/down 7 steps with unilaterl rail CGA Days to Meet Goals 3 Frequency of Treatment Frequency Of Treatment Twice a Day Treatment Plan Physical Therapy Treatment Plan Bed Mobility Training,Transfer Training,Gait Training, Therapeutic Exercise,Balance Retraining,Post Op Education, Discharge Planning,Hot or Cold Pack,Neuromuscular Re-ed Other Recommendations and Next Treatment review precautions; gait with Focus FWW; stairs with spouse when able Precautions Lumbar Precautions Log Roll,No Twisting,Limit Bending,Lifting Restriction of 10 lbs,Gait Belt above Incisional Area Recommendations To Nursing Amount of Assist Needed 1 Person Assist Discharge Recommendations PT Discharge Recommendations Home with Assistance Equipment Needed for Home Before FWW Discharge Transportation Needs at Discharge Private Vehicle
[2021-11-14] MEDS: HYDROMORPHONE 2 MG TABLET PO (14:38)
--- NOTE | 2021-11-14 14:42 | CM.DANOTE ---
DCP/Assessment: Reviewed chart. Patient is a 66yr old female admitted to . for elective spine surgery. PCP is Joann Samuels. Primary payor is 1)[employer]. Met with patient and spouse at bedside explained CM/SW role. Patient anticipates that she will be discharging today after she has been seen for her second PT visit. Patient does report that she will need a walker. Order obtained. Patient reports no additional d/c planning needs. P: Home today. CLAY Hein Discharge Planning/Care Management CM Discharge Assessment Start: 11/14/21 14:38 Freq: Status: Active Protocol: Document 11/14/21 14:39 KJS (Rec: 11/14/21 14:42 KJS [id number]) Discharge Planning Assessment Assigned Washcloth Folder CLAY Hein Contact Information Sixto Palacios (spouse) # [phone] Advance Directives? No History Provided By Patient,Significant Other, Medical Record Prior Living Arrangements House Household Members spouse,family,children Type of transporation used prior to Drives own vehicle admit Independent with ADL's Yes Is patient alert and oriented? Yes DME Already Rented / Owned FWW / Walker Comment FWW order obtained. Barriers to Discharge No Transportation Arrangement Spouse can provide transport. Whiteboard Updated in Patient Room with Yes name and ext. # of Washcloth Folder Review Status In Process Next Review Type Continued Stay Review Pre-Anesthesia Assessment Start: 11/06/21 09:49 Freq: Status: Active Protocol: Document 11/06/21 09:49 CAB (Rec: 11/06/21 10:49 CAB [id number]) Pre-Anesthesia Assessment Preferred Name Eboni Patient Information Reviewed Via Phone Assessment Assessment Completed With Patient H&P Completed Within 30 Days Yes Diagnostic Results BMP/CMP,CBC,EKG Comment Outside labs/ECG scanned, COVID screen-needs to call to [facility] Primary Care Provider Joann Samuels Seen Specialist in Last 12 Months Yes Specialist Seen Brimming Machine Operator,Orthopedist Primary Language Cameroonian Hydrology Professor Required No Height 172.72 cm Weight 62.142 kg Body Mass Index (BMI) 20.8 Hearing Ability Normal Visual Assist Glasses Dentition Type Full- Upper Barriers to Learning None Hx Anesthesia Reactions No Hx Family Anesthesia Reaction No Hx Malignant Hyperthermia No Hx Blood Transfusions Yes: r/t fall '08 Hx Blood Transfusion Reaction No Anesthesia Review Requested No Adhesive Sprayer No alcohol intake current alcohol intake frequency 0-2 drinks per day Smoking Status Current every day smoker Tobacco type cigarettes Smoking packs per day 0.5 Substance Use Type marijuana Comment Advised not to smoke marijuana 24 hours prior to surgery Pain Present Pain Reported Musculoskeletal Symptoms Abnormal Gait,Back Pain, Difficulty Walking,Muscle Cramps,Muscle Spasms,Muscle Weakness,Radiating Pain into Limb History of Falling (Recent or History of Yes ) Patient is completely paralyzed or No completely immobile Mental Status Oriented to own ability Is patient on oxygen? No Does patient have TREJO/SOB Yes: Occasional r/t COPD, Asthma Hx Sleep Apnea No Suspected Sleep Apnea Yes Currently Taking a Beta Ivette Yes: Metoprolol Can You Climb a Flight of Stairs Without No SOB Hx Chest Pain No Hx SOB Yes: Occasional r/t COPD, Asthma Hx Syncope or Dizziness No Anti-Coagulant Therapy No Has a Brimming Machine Operator Yes: Dr. Dai-last visit Cardiac Testing Yes: Left heart cath 08/02/21 Hx Pacemaker/ICD No Pacemaker Rep Required? No Comment Cardiac records in surgery folder for dos Diet Type At Home Regular dysphagia No Gastrointestinal Symptoms Reflux Urinary Catheter Present No Hx Urinary Self Catheterization No Diabetes No Patient No Lactating No Hx Drug Resistant Organism No Presence of External or Internal Medical Yes: Left wrist plate Devices Have you had any close contact with No someone diagnosed with COVID-19? Received a COVID vaccine? Yes Received all doses? Yes Marital Status Lives With spouse,children Prior Living Arrangements House Number of Floors (Floors) Two Floors Support System Child/Children,Spouse Does the Patient Have Assistance After Yes Surgery Patient Discharge Plan Description Return Home Comment Pt advised a couple days length of stay per surgeon Feels Safe in Current Environment Yes Been Physically Hurt or Threatened By a No Person in Current Environment Do you have thoughts of harming yourself None or others? Are you currently considering suicide? No Do you have a plan to hurt yourself or No Plan others? Do You Have Any Spiritual Beliefs That No May Affect Your HC Choices? Do You Have Any Cultural Practices That No May Affect Your HC Choices? Who Can We Speak to About Patient's Care Family, friends Identifying Code for Release of Patient Declines to issue Information Health Care Proxy/Next of Kin Sixto Palacios () Health Care Proxy Emergency Contact Name Sixto Palacios () Emergency Contact Advance Directives? No Power of Dustless Operator No PAC Instructions Durable medical equipment, Medications to take/avoid, Nasal antibiotic,No ETOH/ petroleum product on skin DOS, NPO,Post-op transportation,Pre -surgical wash,Sensory aids, Sturdy shoes/comfortable clothes,Do not bring valuables and remove jewelry
[2021-11-14] MEDS: OXYCODONE ER 10 MG TAB 30 MG PO (15:31)
== END 2021-11-14 16:21 | disposition home or self-care (01) ==
LOC: OR 06:30 → AC 06:31
PROVIDERS: PCP Internal Medicine; Referring Provider Orthopaedic Surgery Orthopaedic Surgery of the Spine; Visit Provider Orthopaedic Surgery Orthopaedic Surgery of the Spine
PROC: (CPT 20939; principal; 2021-11-13 07:45)
DX: M48.062 Spinal stenosis, lumbar region with neurogenic claudication (principal); M43.16 Spondylolisthesis, lumbar region; M41.56 Other secondary scoliosis, lumbar region; I10 Essential (primary) hypertension; J45.909 Unspecified asthma, uncomplicated; E03.9 Hypothyroidism, unspecified; K21.9 Gastro-esophageal reflux disease without esophagitis
CPT/HCPCS: 20939; 22633; 22634; 22842; 22853 ×2; 63052; 63053; 36415; 72100; 76000; 85014; 85018; 94640; 97116; 97162; 97165; 97530; C1713; C9290; J0171; J0330; J0690; J1100; J1170; J1200; J2250; J2405; J2704; J3010; J3410; J7613

== ENCOUNTER → 2022-06-06 12:23 | Outpatient (CLI) | payer OTHER, SELFPAY ==
[2021-11-13 14:13] VITALS: BMI 20.8
--- NOTE | 2022-06-06 | DI.MRI.S_ITS ---
PROCEDURE: MR CERVICAL SPINE WO CON INDICATIONS: Spinal stenosis, cervical region TECHNIQUE: Noncontrast sagittal T1 spin echo and T2 fast spin echo, sagittal STIR, foraminal oblique sagittal T2 fast spin echo, and axial gradient echo or T2 fast spin echo through the cervical spine. COMPARISON: [facility], MR, MR CERVICAL SPINE WO CON, 08/03/2021, 12:38. 08/03/2021 FINDINGS: Straightening and reversal of the usual cervical lordosis redemonstrated. Approximately 4 mm anterolisthesis of C7 on T1 and 5 mm anterolisthesis of C4 on C5. Vertebral body heights maintained. No suspicious focal marrow signal abnormality or significant marrow edema. C2-C3: No spinal canal or neural foraminal stenosis. C3-C4: Severe left and moderate right neural foraminal narrowing due to facet and uncovertebral hypertrophy. Mild spinal canal stenosis. C4-C5: Mild spinal canal stenosis. Severe bilateral neural foraminal narrowing due to facet and uncovertebral hypertrophy. C5-C6: Moderate spinal canal stenosis due to posterior disc osteophyte complex and buckling of the ligamentum flavum. Severe bilateral neural foraminal stenosis due to facet and uncovertebral hypertrophy. C6-C7: Mild spinal canal stenosis and moderate bilateral neural foraminal stenosis. C7-T1: Moderate bilateral neural foraminal stenosis. No spinal canal narrowing. IMPRESSION: Multilevel multifactorial degenerative changes which are stable compared with 08/03/2021 exam. Dictated by: Juan Monzon M.D. on 06/06/2022 at 14:51 Approved by: Juan Monzon M.D. on 06/06/2022 at 15:14
== END ==
PROVIDERS: PCP Nurse Practitioner Family; Referring Provider Orthopaedic Surgery Orthopaedic Surgery of the Spine; Visit Provider Orthopaedic Surgery Orthopaedic Surgery of the Spine
DX: M48.02 Spinal stenosis, cervical region (principal); M47.812 Spondylosis without myelopathy or radiculopathy, cervical region
CPT/HCPCS: 72141

== ENCOUNTER → 2022-07-26 12:27 | Outpatient (CLI) | payer OTHER, SELFPAY ==
[2021-11-13 14:13] VITALS: BMI 20.8
[2022-07-26 13:42] LABS: Add Manual Diff / Slide Review NO; Basophils Absolute Auto 100 /uL (0-100); Basophils Percent Auto 0.8 % (0-2); Eosinophils Absolute Auto 100 /uL (0-450); Eosinophils Percent Auto 0.9 % (2-4); Hematocrit 36.8 % (36-46); Hemoglobin 12.5 g/dL (12.0-16.0); Lymphocytes Absolute Auto 2600 /uL (1100-4500); Lymphocytes Percent Auto 32.2 % (25-40); Mean Corpuscular HGB Conc 34.1 % (30-36); Mean Corpuscular Volume 90.9 fL (80-100); Monocytes Absolute Auto 1000 /uL (0-900); Neutrophils Absolute Auto 4300 /uL (1500-7000); Neutrophils Percent Auto 54.1 % (50-75); Platelet Count 355 X10^3/uL (150-400); Red Blood Cell Count 4.05 X10^6/uL (4.0-5.2); Red Cell Distribution Width 14.8 % (11.6-14.8)
[2022-07-26 14:10] LABS: Appearance Urine UA CLEAR; Bilirubin Urine UA NEGATIVE (NEGATIVE); Color Urine UA YELLOW; Glucose Urine UA NEGATIVE (Negative); Ketones Urine UA NEGATIVE (NEGATIVE); Leukocyte Esterase Urine UA TRACE (NEGATIVE); Nitrite Urine UA NEGATIVE (Negative); Occult Blood Urine UA NEGATIVE (Negative); Protein Urine UA NEGATIVE (Negative); Specific Gravity Urine UA <=1.005 (1.000-1.035); Urobilinogen Urine UA 0.2 E.U./dL (0.2)
[2022-07-26 14:22] LABS: BUN Creatinine Ratio 10.4 (6-22); Blood Urea Nitrogen 10 mg/dL (7-17); Calcium 9.3 mg/dL (8.4-10.2); Carbon Dioxide 24 mmol/L (22-32); Chloride 97 mmol/L (98-107); Estimated Glomerular Filt Rate > 60 mL/min (>60); Glucose 92 mg/dL (80-110); HEMOLYSIS < 15 (0-50); Sodium 136 mmol/L (137-145)
[2022-07-26 14:23] LABS: Bacteria Urine Occasional (0-1); Culture Indicated Urine Specimen Cultured; RBC Urine None Seen (0-5/HPF); Squamous Epithelial Cell Urine 5-10 /HPF (0-5/HPF); WBC Urine 5-10/HPF (0-5/HPF)
== END ==
PROVIDERS: PCP Nurse Practitioner Family; Referring Provider Orthopaedic Surgery; Visit Provider Orthopaedic Surgery
DX: Z01.818 Encounter for other preprocedural examination (principal); Z20.822 Contact with and (suspected) exposure to COVID-19; Z01.812 Encounter for preprocedural laboratory examination; N39.0 Urinary tract infection, site not specified
CPT/HCPCS: 36415; 80048; 81001; 85025; 87086; 93005

== ENCOUNTER → 2022-08-01 11:43 | Outpatient (CLI) | payer MEDICARE, OTHER, SELFPAY ==
[2021-11-13 14:13] VITALS: BMI 20.8
[2022-08-01 16:48] LABS: COVID19 -Nasal RAPID Negative (Negative)
== END ==
PROVIDERS: PCP Nurse Practitioner Family; Referring Provider Orthopaedic Surgery; Visit Provider Orthopaedic Surgery
DX: Z20.822 Contact with and (suspected) exposure to COVID-19 (principal)
CPT/HCPCS: 87635; C9803

== ENCOUNTER 2022-08-02 08:44 | Inpatient (IN) | payer MEDICARE, OTHER, SELFPAY ==
[2021-11-13 14:13] VITALS: BMI 20.8
[2022-07-19 08:48] VITALS: BMI 20.9
[2022-08-02] VITALS (8 sets, daily range): BP systolic 132–152; BP diastolic 76–93; PULSE 72–95; RESP 16–23; TEMP 36.7–37.3; O2SAT 93–98; BMI 20.9
[2022-08-02] MEDS: PREGABALIN 75 MG CAPSULE PO (08:57)
[2022-08-02] MEDS: ACETAMINOPHEN 325 MG TABLET 975 MG PO (08:58)
[2022-08-02] MEDS: CELECOXIB 200 MG CAPSULE PO (08:59)
[2022-08-02] MEDS: LACTATED RINGERS 1,000 ML 42 ML IV (08:59)
--- NOTE | 2022-08-02 10:01 | PM.PREOP ---
Pre-operative Note Interval Note History & Physical reviewed/Exam performed by Physician: Yes Changes to H&P: No
[2022-08-02] MEDS: CEFAZOLIN 2 GM/100 ML PREMIX 100 ML IV (10:40)
[2022-08-02] MEDS: TRANEXAMIC ACID 1,000 MG VIAL 1000 MG INJ (10:45)
--- NOTE | 2022-08-02 10:49 | SUR.OPER ---
Beach chair with SKYTRON shoulder positioner. Lower body on padded OR bed. Head in foam padded head cradle, secured with straps. Non-operative arm secured at side on armboard with gel pad. 2 Pillows under knees. Safety belt at thighs. Cloth tape over blanket over lower legs and over trunk.
[2022-08-02] MEDS: BUPIVACAINE 0.5% W/ EPI (PF) 30 ML VIAL INJ (11:09)
--- NOTE | 2022-08-02 12:58 | DI.RAD.S_ITS ---
PROCEDURE: XR SHOULDER RT 1V INDICATIONS: total right shoulder TECHNIQUE: 1 views of the shoulder were acquired. COMPARISON: [facility] [place], [place], XR SHOULDER 2+ VIEWS RIGHT, 07/02/2022, 11:08. FINDINGS: Reverse right shoulder arthroplasty. Skin staple line. Visualized portions of the right hemithorax are clear. IMPRESSION: Expected postoperative appearance of the right shoulder arthroplasty. Dictated by: Tulio Morales M.D. on 08/02/2022 at 13:14 Approved by: Tulio Morales M.D. on 08/02/2022 at 13:15
[2022-08-02] MEDS: OXYCODONE/ACETAMINOPHEN 5/325 TABLET 2 TAB PO (12:59)
--- NOTE | 2022-08-02 13:25 | PM.OP.1 ---
Operative Date/Time/Diagnoses Date of procedure: 08/02/22 Time of procedure: 13:25 Pre-op diagnosis: 1. Right shoulder osteoarthritis 2. Right carpal tunnel syndrome Post-op diagnosis: same Procedure & Clinicians Procedure: 1. Right reverse total shoulder arthroplasty 2. Right carpal tunnel release Same procedure as scheduled: Yes Indications: Indications: This is a 66-year-old female who has severe osteoarthritis. Symptoms have been present for years, insidious onset. Patient has failed conservative therapy including injections, physical therapy, anti-inflammatories and activity modification. She also has carpal tunnel syndrome as confirmed on EMG. After extensive discussion in clinic, they wished to go forward with surgery. Risks and benefits were described including the risk of infection, bleeding, damage to internal structures including nerves. We also discussed the risk of failure of surgery and the need for revision surgery as well as the risk of anesthesia. The patient expressed understanding with these risks and wished to go forward with surgery. Surgeon: Hemanth Norris Evaporator Supervisor: Jas Lynn Anesthesia Type: General Operative Notes Findings: Findings: Osteoarthritis of the glenoid and humeral head as well as a deficient rotator cuff as noted on preoperative imaging and under direct visualization Prosthetic devices, grafts, tissues, transplants, or devices: Tornier standard 25 mm base plate with a 36 mm glenosphere. Size 4A flex stem with a size 9 mm, C (angle 7.5 degree) polyethylene Estimated Blood Loss (mL): 50 Blood products transfused: none Procedure in detail: Operative note: Patient was seen in the preoperative holding unit. The correct right shoulder and right hand was identified and marked with my initials. Again we discussed the risks and benefits of surgery and they wished to go forward with surgery. The patient was brought back to the operating room and placed supine on the operating table. She underwent smooth endotracheal intubation. All prominences were padded and they were placed into the beach chair position. Intravenous antibiotics were given. The right shoulder was then prepped with the standard sterile preparation and draping. A time-out was then performed in my initials were again identified on the correct shoulder. 1 g of IV tranexamic acid was given. A standard deltopectoral incision was made. Skin flaps were made. The cephalic vein was identified and retracted laterally. This was protected throughout the remainder of the case. Sharp dissection was made along the deltoid, subacromial and subcoracoid space to release adhesions. The conjoined tendon was identified and the axillary nerve was palpated and continuous using the tug test. It was protected throughout the remainder of the case. A brown retractor was placed underneath the deltoid muscle and a darach retractor underneath the conjoint tendon. The anterior circumflex artery and associated veins on the lower border of the subscapularis were identified and tied off using 0-Vicryl. The biceps tendon was identified in the bicipital groove. This was released from its sheath, and taken from its origin on the glenoid and tied into the pectoralis tendon for a solid tenodesis. We then began a subscapularis peel. The subscapularis was tagged with an Ethibond suture. A 360 degree circumferential release of the subscapularis was performed with protection of the axillary nerve. The coracohumeral ligament was released at the base of the coracoid. The coracoacromial ligament was left intact. The shoulder was then dislocated. Osteophytes were removed using combination of rongeur and osteotome. The rotator cuff was noted to be insufficient. An intramedullary guide was used set at version of 20?. Using an oscillating saw a conservative humeral head cut was made. Impaction reamers were reamed up to a size 4 stem set at angle a, 127.5?. A neck protector was placed. Attention was then turned to the glenoid. After retracting the humeral head posteriorly a circumferential release was performed of the capsule with protection of the axillary nerve. The labrum was then released starting at the biceps anchor and going around the rim a small amount of triceps was released from the inferior glenoid. A center guide pin was then placed using the guide, followed by Reamer. After adequate cartilage was removed the center drill hole was drilled and measured. The base plate was then implanted and screwed into place. The superior drill hole was drilled and filled in a nonlocking fashion, followed by the inferior and anterior holes in locking fashion. A 36 standard glenosphere was then selected and screwed into place onto the base plate. Turning back to the humerus, the humeral head was delivered and trialed with a C 7.5 degree + 9mm poly. The arm was taken through range of motion and this was felt to be stable. The trial was then removed and a dilute Betadine wash was then performed with 1 L of sterile saline. Before placing the final implant, drill holes were made in the bicipital groove for the subscapularis repair, and sutures were passed through the drill holes. The final stem with low offset tray was then impacted into the humerus. The shoulder was then reduced and again brought through range of motion and was felt to be stable. The interval was then closed using 0-Vicryl. The subscapularis was then repaired using a modified racking hitch with niece loupes. The deltopectoral interval was then closed with #2 Ethibond. The skin was closed with 2-0 PDS and cindy followed by Aquacel dressing. We then turned our attention to the right hand carpal tunnel. An incision was made in line with radial border of the ring finger not going distal to Monterroso's cardinal line. Dissection was brought down to the transverse carpal ligament. Once the transverse fibers were seen, an incision was made over the ligament down to the median nerve. A [place] was placed protecting the nerve and the remainder of the transverse carpal ligament was released. Using Littler scissors, released was performed proximal and distal. It was noted that the nerve was fully released in both directions. The wound was irrigated and closed with 3-0 nylon Patient was awoken from anesthesia and brought back to the postoperative recovery unit without issue. They were placed into a sling. Assisting participation: This operation could not have been safely performed (without compromising the technical results or length of the procedure) without the assistance of a skilled elementary assistant principal. The elementary assistant principal was medically necessary for proper positioning, retraction and manipulation of instruments, proper exposure, graft prep, and manipulation of tissue. Complications: none Post-operative Condition: stable Disposition: PACU Plan for aftercare: Postoperative instructions: Sling to remain on for 6 weeks. No external rotation past neutral for 6 weeks. Okay for him to come off her shower. Okay to shower over the Aquacel dressing. If any water gets underneath the dressing, remove the dressing. First postoperative visit in 2 weeks.
== END 2022-08-02 14:40 | disposition home or self-care (01) | DRG 483 ==
PROVIDERS: Admitting Provider Orthopaedic Surgery; PCP Nurse Practitioner Family; Referring Provider Orthopaedic Surgery; Visit Provider Orthopaedic Surgery
PROC: 0RQJ0ZZ Repair Right Shoulder Joint, Open Approach (ICD-10-PCS; CPT 23472; principal; 2022-08-02 10:00)
DX: M19.011 Primary osteoarthritis, right shoulder (principal); G56.01 Carpal tunnel syndrome, right upper limb; F17.210 Nicotine dependence, cigarettes, uncomplicated; Z20.822 Contact with and (suspected) exposure to COVID-19
CPT/HCPCS: 73020; 87635; C1776; C9803; J0690; J1100; J2250; J2405; J2704; J3010

== ENCOUNTER 2023-03-19 06:31 | Day surgery (SDC) | payer MEDICARE, OTHER, SELFPAY ==
[2021-11-13 14:13] VITALS: BMI 20.8
[2023-03-19] VITALS (12 sets, daily range): BP systolic 110–162; BP diastolic 59–86; PULSE 60–83; RESP 12–18; TEMP 36.3–36.9; O2SAT 95–100; BMI 20.5
--- NOTE | 2023-03-19 | DI.RAD.S_ITS ---
PROCEDURE: XR HIP W PEL IF DONE RT 2V INDICATIONS: POST OP TECHNIQUE: AP pelvis and lateral view of the right hip acquired. COMPARISON: [facility], [place], XR HIP W PEL IF DONE RT 2V, 03/19/2023, 9:13. FINDINGS: Bones: Patient is status post right hip arthroplasty, with hardware components in expected positions. The hip joint appears congruent. The visualized bony structures appear intact. Soft tissues: Overlying postoperative changes are noted. No suspicious soft tissue densities. IMPRESSION: Expected immediate postoperative appearance, status post total right hip arthroplasty. Dictated by: Joby Oneill M.D. on 03/19/2023 at 11:51 Approved by: Joby Oneill M.D. on 03/19/2023 at 11:52
[2023-03-19] MEDS: CELECOXIB 200 MG CAPSULE PO (06:57)
[2023-03-19] MEDS: VANCOMYCIN 1,000 MG/200 ML PIGGYBACK 200 MG IV (06:57)
[2023-03-19] MEDS: PREGABALIN 75 MG CAPSULE PO (06:57)
[2023-03-19] MEDS: ACETAMINOPHEN 325 MG TABLET 975 MG PO (06:58)
[2023-03-19] MEDS: LACTATED RINGERS 1,000 ML 42 ML IV (07:02)
--- NOTE | 2023-03-19 07:38 | PM.PREOP ---
Pre-operative Note Interval Note History & Physical reviewed/Exam performed by Physician: Yes Changes to H&P: No
--- NOTE | 2023-03-19 07:38 | PM.OP.1 ---
Operative Date/Time/Diagnoses Date of procedure: 03/19/23 Time of procedure: 07:38 Pre-op diagnosis: right hip OA Post-op diagnosis: same Procedure & Clinicians Procedure: Right total hip arthroplasty anterior approach Same procedure as scheduled: Yes Indications: The patient has had progressively worsening right hip pain with radiographic changes consistent with arthritis. Non-operative management has failed and the patient has requested total hip replacement. The risks, benefits and alternatives to surgery were discussed with the patient prior to proceeding. Risks discussed included, but were not limited to, failure to relieve pain, leg length discrepancy, dislocation, stiffness, infection, nerve damage, deep venous thrombosis, pulmonary embolism, stroke, coma, heart attack, permanent paralysis and , as well as the potential need for eventual revision of the prosthetic. Surgeon: Berenice Garcia Senior Operations Manager: Jas Lynn Anesthesia Type: General and Spinal Operative Notes Findings: Severe right hip OA Closure Type: primary Specimen(s): none sent Prosthetic devices, grafts, tissues, transplants, or devices: [employer] R3 size 50, dual mobility liner,one 6.5 mm screw, polar stem size 0 standard with collar, 28 by - 3 Oxinium head, 38 x 50 dual mobility liner Estimated Blood Loss (mL): 250 Blood products transfused: none Procedure in detail: The patient was brought to the operating room. Patient was carefully positioned in the supine position. Time-out was performed and antibiotics were given. Anesthesia was induced. She was positioned in the on the table in order to allow hyperextension of the hip. The right lower extremity was prepped and draped in a standard sterile fashion. An anterior right hip incision was made 1 fingerbreadth lateral to the anterior superior iliac spine and extended distally towards the greater trochanter. Dissection was carried out through skin and subcutaneous tissues. Superficial hemostasis was achieved. The fascia over the tensor fascia chanell was defined and incised with a knife. Two Allis clamps were used to grasp the fascia. Tensor fascia chanell was retracted laterally. A gelpi retractor was placed. Dissection was carried out down along the neck. The circumflex vessels were carefully identified and cauterized with the Aqua Mantis. A PA was used throughout the procedure and was essential for retraction and safe implantation of the components as well as assisting with visualization for adequate hemostasis. There was good visualization of the femoral neck. A Cobra was placed superior to the neck and the gluteus fibers were carefully stripped from that superior aspect of the capsule. A 2nd retractor was placed along the inferior aspect of the neck. The rectus insertion along the capsule was partially released. A 3rd retractor that was then gently placed over the rim of the acetabulum under the rectus. Capsule was carefully incised and released from the intertrochanteric line circumferentially superior to the mid sagittal line and inferiorly to the mid sagittal line until the lesser trochanter was palpable. A tag stitch was placed both in the superior and inferior limb of the capsular insertion. Along the acetabulum capsule was also released up to the mid sagittal 12:00 position. A portion of the labrum was resected. A saw was used to perform an osteotomy at the level of the intertrochanteric line and the junction of the superior femoral neck leaving approximately 1 finger breath of residual inferior neck above the lesser trochanter. A 2nd cut was made along the femoral neck at the base of the head and a napkin ring of neck was removed. Corkscrew was placed in the femoral head and the head was removed without difficulty. Retractors were then repositioned around the acetabulum. Residual labrum was resected and additional osteophytes were removed. A reamer that was 4 mm below the templated size was placed by hand in the acetabulum and it was reamed to centralize the acetabulum. It was then reamed up to 2 under the templated size and fluoroscopy was brought in to confirm the position of the reaming and depth of reaming. I reamed 1 under the anticipated size. A trial cup was placed and noted that it was appropriately sized and fluoroscopy confirmed position and depth. The component was open and inserted without difficulty fluoroscopic imaging was used to confirm that the cup had been adequately seated and was well positioned. It was further stabilized with a screw. Dual mobility liner was placed. The cup was tested and noted to be stable. Attention was then directed to the femur. The femur was gently hyperextended additional capsular release was performed as needed in order to allow adequate visualization of the proximal femur with elevation of the femur. Patient was placed in a hyperextended slightly adducted position with maximum external rotation. Box osteotome was used to check for any residual neck as well as sclerotic bone along the trochanter. Luttrell pepper was placed in the femur. Additional broaching was performed. Canal finder was used to determine the alignment of the canal and position. Size 1 broach was placed. The canal was then appropriately broached up to the templated size as long as there was adequate stability of the broach and serial advancement of the broach without excessive impingement. Specific attention was directed at avoiding varus attempting to direct the distal aspect of the broach more anteriorly and avoiding excessive anteversion. Trial reduction showed acceptable range of motion, good stability, no posterior impingement, alevism of leg length and appropriate lateral shuck. I also hyperflexed the hip and checked that there was no impingement anteriorly and there was good stability with flexion, adduction and internal rotation. Marcaine and Exparel were injected. The stem was placed without difficulty. Repeat trial reduction and x-ray showed acceptable overall position, length, and no evidence of the femoral fracture. Final head was placed. Wound was meticulously irrigated with normal saline. The hip was reduced and additional Exparel and Marcaine were injected. The capsule was closed with interrupted nonabsorbable sutures. The fascia of the tensor was closed with interrupted and running Vicryl. No drain was placed. Any tensor fascia chanell muscle that appeared to be contused or injured which was a minimal amount was carefully resected. Capsule around the tensor was injected with Exparel and Marcaine. The skin was closed with barbed stitches for the subcutaneous tissue and skin. We also used surgical glue. The wound was dressed sterilely. Brief Betadine soak was also used and was meticulously irrigated with normal saline. Patient was transferred to recovery room in satisfactory condition. Complications: none Post-operative Condition: stable Disposition: Acute Care Plan for aftercare: The patient will be maintained on a standard total hip replacement protocol with weight bearing as tolerated and anterior hip precautions. The patient will receive Aspirin and sequential compression devices for DVT prophylaxis. The patient will be discharged home when safe for the home environment. She has multiple medical problems including COPD, cardiac disease, and lumbar and cervical myelopathy. She may require inpatient hospital stay for several days. Plan is to discharge her when she is safe.
[2023-03-19] MEDS: CEFAZOLIN 2 GM/100 ML PREMIX 100 ML IV ×2 (08:00→16:46)
--- NOTE | 2023-03-19 08:00 | DI.RAD.S_ITS ---
PROCEDURE: XR HIP W PEL IF DONE RT 2V INDICATIONS: INTRA OP TECHNIQUE: 4 views of the hip were acquired during intraoperative procedure. COMPARISON: None. FINDINGS: Bones: Intraoperative images of right hip arthroplasty. Hardware is in expected position. IMPRESSION: Intraoperative images of right hip arthroplasty with hardware in expected position. Please see operative report for full details. Dictated by: Helena Ramesh M.D. on 03/19/2023 at 12:33 Approved by: Helena Ramesh M.D. on 03/19/2023 at 12:34
--- NOTE | 2023-03-19 08:31 | SUR.OPER ---
Supine on padded [employer] table with bilateral legs secured in padded positioning boots and suspended in positioning spars, operative leg in traction per surgeon. Head on one pillow. Arm on non-operative side secured on padded armboard <90 degrees abduction. Arm on operative side padded and resting across chest then secured with tape over sheet. Padded perineal post in place per surgeon.
[2023-03-19] MEDS: BUPIVACAINE LIPOSOME 266 MG/20 ML VIAL INJ (08:37)
[2023-03-19] MEDS: BUPIVACAINE 0.25% (PF) 60 ML, EPINEPHrine 0.3 MG INJ (08:37)
[2023-03-19] MEDS: IBUPROFEN 400 MG TABLET PO ×2 (11:34→15:10)
--- NOTE | 2023-03-19 12:05 | OT.IPNOTE ---
Attempted OT eval, pt still does not having full sensation yet and having pain. PT to check on pt later and OT to check on the pt in the morning. No charge
[2023-03-19] MEDS: OXYCODONE IR 10 MG TABLET PO ×2 (12:07→15:10)
[2023-03-19] MEDS: polyethylene glycoL 3350 17 GM POWD.PACK PO (12:07)
--- NOTE | 2023-03-19 15:13 | PT.IIE ---
Current Diagnoses Unilateral primary osteoarthritis, right hip (03/19/23) Surgery Performed Operation Date: 03/19/23 07:45 Actual Procedures p Total Hip Arthroplasty/Anterior Approach(Right) - Berenice Garcia MD Surgical History (Last Updated 03/07/23 @ 11:59 by Kym Patten RN) History of lumbar fusion (11/13/21) History of surgery on left wrist (2014) History of total replacement of right shoulder joint (08/02/22) Medical History (Last Reviewed 11/14/21 @ 12:18 by Jas Lynn PA-C) Asthma Chronic, continuous use of opioids COPD (chronic obstructive pulmonary disease) Current every day smoker Depression Esophageal spasm GERD (gastroesophageal reflux disease) History of alcoholism History of left heart catheterization (08/02/21) HTN (hypertension) Hyponatremia Hypothyroid Infected tooth (11/03/21) Lung abnormality (2007) Other secondary scoliosis, lumbar region Palpitations RBBB (right bundle branch block with left anterior fascicular block) Spinal stenosis Spondylolisthesis Suspected sleep apnea Physical Therapy Inpatient Evaluation/Re-Eval M1 PT/OT-IP Prior Functional Status Start: 03/19/23 15:57 Freq: NEEDED Status: Active Protocol: Document 03/19/23 15:58 AB (Rec: 03/19/23 16:21 AB [id number]) Medical Review Prior Functional Status Medical History Reviewed Yes Communication Pt able to express needs. Mobility and Gait Used SPC to ambulate due to back and hip pain. Activities of Daily Living and IADL's IND with ADLs, modified IADLs due to pain Social History Household Members spouse,family,children Living Arrangements House Number of Floors (Floors) Two Floors Number of Stairs To Enter/Railing? 7 TRENT with 2 handrails Home Environment Standard Height Toilet,High Toilet,Walk in Shower Home Equipment Front Wheel Walker,Four Wheel Walker,Straight Cane,Bedside Commode,Shower Seat without Backrest Additional Social History Comment Pt is able to live on main level of home. Lives with who can provide 24/7 assistance. M2 PT-IP Current Condition Start: 03/19/23 15:57 Freq: NEEDED Status: Active Protocol: Document 03/19/23 15:58 AB (Rec: 03/19/23 16:21 AB [id number]) Physical Therapy Current Condition Current Condition Evaluation Date 03/19/23 Treatment Diagnosis s/p right IRISH Onset Date 03/19/23 M3 PT-IP Subjective Start: 03/19/23 15:57 Freq: NEEDED Status: Active Protocol: Document 03/19/23 15:58 AB (Rec: 03/19/23 16:21 AB [id number]) Subjective Physical Therapy Visit Type Type Initial Evaluation Visit Start Time 15:13 Visit Stop Time 15:53 Total Visit Minutes 40 Notes Pt presents seated in bed and is agreeable to PT evaluation. Number of BREAKER OFF Visits 0 Physical Therapy Visit Comments Patient Comments Pt reports she is feeling much better and does not have much pain at the moment. Patient Goals To return home and move around better. Therapy Pain Assessment Pain When Pain Assessed During Mobility Pain Present Pain Present Denied Pain M4 PT-IP Mobility and Gait Start: 03/19/23 15:57 Freq: NEEDED Status: Active Protocol: Document 03/19/23 15:58 AB (Rec: 03/19/23 16:21 AB [id number]) PT-Bed Mobility Assessment Rolling Level of Assist Independent Supine to Sit Supine to Sit Independent Sit to Supine Sit to Supine Independent Scooting Scooting to Edge of Bed Independent PT-Transfer Assessment Sit to and From Stand Sit to and from Stand Independent,Use of Upper Extremities Equipment Transfer Assistive Device Gait Belt,Front Wheeled Walker Transfers Transfer Destination Bed,Bedside Commode Transfer Technique Stand Step Pivot Transfer Ability Level of Assist Independent,Standby Assistance Comments Mobility Comments Pt able to perform transfer without FWW with SBA, but is independent when using FWW. Gait Assessment Gait Gait Assistance Required: Standby Assistance Distance (Feet) 250 Assistive Devices Assistive Device Gait Belt,Front Wheeled Walker Gait Deviations General Gait Pattern Antalgic,Decreased Stride Length,Decreased Feet Clearance,Flexed Trunk Factors Limiting Gait Function Factors Limiting Gait Function Decreased Strength,Limited Range of Motion Comments Gait Comments Gait is also limited by hip precautions (no extension of right hip) Stair Climbing Assessment Evaluation Level of Assist On Stairs Standby Assistance Devices Stair Climbing Assistive Devices Left Railing,Right Railing Technique/Endurance Stair Climbing Direction Ascend and Descend Stair Climbing Technique Step to Step Number of Steps Climbed 3 Query Text: Stair Climbing Set # Repetitions (reps) 1 PT-Balance Assessment Sitting Balance and Reactions Static Sitting Balance Ability Normal Dynamic Sitting Balance Ability Normal Standing Balance and Reactions Static Standing Balance Ability Normal Dynamic Standing Balance Ability Good M5 PT-IP Objective Assessments Start: 03/19/23 15:57 Freq: NEEDED Status: Active Protocol: Document 03/19/23 15:58 AB (Rec: 03/19/23 16:21 AB [id number]) Orientation Orientation/Cognition Level of Alertness Alert Orientation Name,Date,Place,Situation Language Function Ability No Deficits Noted Safety Awareness Understands Safety Issues Memory Description No Deficits Noted Gross Range of Motion Upper Extremity ROM Assessment Within Functional Limits Lower Extremity ROM Assessment Right Impaired Strength Upper Extremity Strength Assessment Within Functional Limits Lower Extremity Strength Assessment Right Impaired Comments Strength Comments RLE impaired due to surgery Coordination Assessment Gross Coordination Gross Coordination WNL M6 PT-IP Treatment Start: 03/19/23 15:57 Freq: NEEDED Status: Active Protocol: Document 03/19/23 15:58 AB (Rec: 03/19/23 16:21 AB [id number]) Physical Therapy Treatment Education Education Provided Precautions,Post-Op Packet, Safety Brace Education Patient M7 PT-IP Assessment and Plan Start: 03/19/23 15:57 Freq: NEEDED Status: Active Protocol: Document 03/19/23 15:58 AB (Rec: 03/19/23 16:21 AB [id number]) PT Summary Assessment and Plan Potential Rehabilitation Potential Excellent Status of Condition at Evaluation Stable Summary Impairments Pain,ROM,Strength,Transfers, Gait Assessment Summary Belkis Palacios is a 67 year old female patient presenting s/p right IRISH ( anterior approach) performed . The pt demonstrate deficits related to this surgical procedure including ROM deficits, muscular weakness, gait impairments and pain symptoms. However, the pt demonstrates independence with functional mobility and shows good safety awareness. She is able to recall 1 of 2 hip precautions, and requires occasional cues to maintain hip precautions when ambulating. She was provided with education regarding safety with functional mobility, precautions, and post-op packet. Based on these findings, the pt would benefit from skilled PT if she requires overnight hospital stay. Otherwise, discharge to outpatient PT is recommended to improve her post operative outcomes to return to her highest level of function. Goals Bed Mobility Goal Independent Transfer Goal Independent Gait Goal Independent,Cane,Front Wheel Walker Gait Distance 300 Days to Meet Goals 5 Frequency of Treatment Frequency Of Treatment Twice a Day Treatment Plan Physical Therapy Treatment Plan Gait Training,Therapeutic Exercise,Balance Retraining, Post Op Education,Discharge Planning,Hot or Cold Pack, Neuromuscular Re-ed Other Recommendations and Next Treatment Therex and neuromusclar re-ed Focus exercises to improve her deficits. Gait training to ensure anterior hip precautions. Precautions Anterior Hip Precautions No Hip Extension,No Hip External Rotation Weight Bearing Status Weight Bearing Status Weight Bear as Tolerated Recommendations To Nursing Amount of Assist Needed Independent,Standby Assistance Discharge Recommendations PT Discharge Recommendations Home,Outpatient PT Transportation Needs at Discharge Private Vehicle
== END 2023-03-19 18:45 | disposition home or self-care (01) ==
LOC: OR 06:33 → AC 08:57
PROVIDERS: PCP Nurse Practitioner Family; Referring Provider Orthopaedic Surgery; Visit Provider Orthopaedic Surgery
PROC: (CPT 27130; principal; 2023-03-19 07:45)
DX: M16.11 Unilateral primary osteoarthritis, right hip (principal)
CPT/HCPCS: 27130; 73502; 76000; 97161; 97535; C1776; C9290; J0171; J0690; J1100; J1170; J2274; J2405; J2704

== ENCOUNTER 2024-09-03 23:15 | Emergency (ER) | payer MEDICARE, OTHER, SELFPAY ==
[2023-03-19 11:35] VITALS: BMI 20.5
[2024-09-03 23:23] VITALS: BP 141/84; PULSE 87; RESP 16; TEMP 36.8; O2SAT 98; BMI 21.4
--- NOTE | 2024-09-03 23:58 | ED_ITS ---
HPI - Allergic Reaction General Chief complaint: Allergic Reaction Stated complaint: hives, swelling, feels like she is in shock Time Seen by Provider: 09/03/24 23:58 Source: patient Mode of arrival: Wheelchair History of Present Illness HPI narrative: 69-year-old female history of hypothyroidism hypertension comes into the ED from home for evaluation of allergic reaction. States that she started a new medication for pneumonia, states it was a Z-Renny and Augmentin took it this evening, she states that started noticing hives on her upper extremities also stating that she felt like her throat was tight, also noticed swelling to her hands and fingers, states that she took a dose of NyQuil and the symptoms have significantly improved. Patient without any known history of allergic reactions to any medications. Upon further questioning she states that she does believe it was crab that caused her allergic reaction she states that she ate crab and a proximally 5-10 minutes later she noticed the swelling and hives. States that she has had crab before only known allergy is bee stings and spider bites. Related Data Home Medications Medication Instructions Recorded Confirmed albuterol sulfate 90 mcg/actuation 2 puff inhalation Q4-6H PRN 11/06/21 03/19/23 aerosol inhaler (ProAir HFA) Shortness Of Breath levothyroxine 100 mcg tablet 100 mcg PO DAILY 11/06/21 03/19/23 (Synthroid) loratadine 10 mg tablet 10 mg PO DAILY 11/06/21 03/19/23 magnesium oxide 500 mg PO DAILY Low magnesium 11/06/21 03/19/23 metoprolol succinate 25 mg 25 mg PO DAILY 11/06/21 03/19/23 tablet,extended release 24 hr ondansetron 4 mg disintegrating 4 mg PO QAM PRN Nausea, vomiting 11/06/21 03/19/23 tablet albuterol sulfate 2.5 mg/3 mL 2.5 mg inhalation Q4-6H PRN 07/19/22 03/19/23 (0.083 %) solution for nebulization Shortness Of Breath fluticasone 500 mcg-salmeterol 50 1 inh inhalation BID PRN Shortness 07/19/22 03/19/23 mcg/dose blistr powdr for Of Breath inhalation (Advair Diskus) hydrocodone 10 mg-acetaminophen 2 tab PO TID 07/19/22 03/19/23 325 mg tablet oxycodone-acetaminophen 10 mg-325 1 tab PO TID PRN Pain 07/19/22 03/19/23 mg tablet aspirin 81 mg capsule 81 mg PO DAILY 03/07/23 03/19/23 losartan 50 mg tablet 50 mg PO DAILY 03/07/23 03/19/23 Previous Rx's Medication Instructions Recorded aspirin 81 mg tablet,delayed 81 mg PO BID #60 tabs 03/19/23 release diphenhydramine HCl 25 mg capsule 25 mg PO TID PRN allergic reaction 09/04/24 (Benadryl) 1 day #3 caps epinephrine 0.3 mg/0.3 mL 0.3 mg (0.3 mL) IM Q5-15M PRN 09/04/24 injection, auto-injector (EpiPen) anaphylaxis #2 ea famotidine 20 mg tablet (Pepcid) 20 mg PO DAILY 5 days #5 tabs 09/04/24 prednisone 20 mg tablet 40 mg (2 x 20 mg) PO DAILY 5 days 09/04/24 #10 tabs Allergies Allergy/AdvReac Type Severity Reaction Status Date / Time procaine [From Novocain] Allergy Intermediate mouth Verified 03/19/23 06:47 sores. Review of Systems Review of Systems Narrative: General: Denies fever, chills, weight loss HEENT: Denies headache, eye drainage, eye irritation, head trauma, sore throat, voice change Cardiovascular: Denies any chest pain, palpitations, shortness of breath, tachycardia Respiratory: Denies any shortness of breath, cough, wheeze, stridor GI/: Denies any abdominal pain, nausea, vomiting, diarrhea, bright red blood per rectum, melanotic stools, urinary frequency, urinary retention, dysuria, hematuria MSK: Positive bilateral upper and lower extremity swelling, Denies any joint pain, muscle pains, swelling Skin: Positive hives, Denies any rashes, lesions, discoloration Neuro: Denies any headache, lightheadedness, dizziness, fainting, weakness Psych: Denies SI/HI Patient History Medical History (Updated 09/04/24 @ 01:28 by Harmeet Cerda DO) Infected tooth (11/03/21) Esophageal spasm History of left heart catheterization (08/02/21) Suspected sleep apnea Current every day smoker Lung abnormality (2007) HTN (hypertension) Asthma RBBB (right bundle branch block with left anterior fascicular block) Palpitations Chronic, continuous use of opioids Depression Hyponatremia History of alcoholism GERD (gastroesophageal reflux disease) COPD (chronic obstructive pulmonary disease) Spinal stenosis Spondylolisthesis Other secondary scoliosis, lumbar region Hypothyroid Surgical History (Updated 03/07/23 @ 11:59 by Kym Patten RN) History of total replacement of right shoulder joint (08/02/22) History of lumbar fusion (11/13/21) History of surgery on left wrist (2014) Social History household members: spouse, family and children Smoking Status: Former smoker alcohol intake: current Smoking Status: Former smoker alcohol intake frequency: a few times a week Exam Narrative Exam Narrative: General: Cooperative, comfortable, well-developed, not in acute distress HEENT: Posterior oropharynx is clear without any signs of obstruction uvula midline, speaking full sentences protecting airway tolerating secretions Normocephalic, atraumatic, PERRLA, normal sclera, eyelids normal, Neck: Active full range of motion, atraumatic Chest: Normal to inspection, negative crepitus, no overlying erythema ecchymosis Respiratory: Normal respiratory effort, not in acute respiratory distress, clear to auscultation bilaterally negative cough, wheeze, tachypnea, rhonchi, rales Cardiology: Regular rate rhythm negative gallop, murmur, rubs GI/: Normal to inspection, soft, nonrigid, no tenderness to palpation, exam deferred MSK: Full range of active range of motion of all 4 extremities, atraumatic Skin: Urticarial rash noted to patient's bilateral upper and lower extremities consistent with an allergic reaction Neuro: Alert awake oriented x3, moves all 4 extremities spontaneously, cranial nerves intact, able to answer all questions appropriately follows commands appropriately Psych: Cooperative, negative suicidal or homicidal ideations Initial Vital Signs Initial Vital Signs: Vital Signs Temperature 98.2 F 09/03/24 23:23 Pulse Rate 87 09/03/24 23:23 Respiratory Rate 16 09/03/24 23:23 Blood Pressure 141/84 H 09/03/24 23:23 Pulse Oximetry 98 09/03/24 23:23 Oxygen Delivery Method Room Air 09/03/24 23:23 Course Orders Ordered: ED Orders 09/04/24 00:30 BMP [Basic Metabolic Panel] Stat CBC Auto Diff [Complete Blood Count AUTO DIFF] Stat Famotidine (Famotidine 20 Mg/2 Ml Vial) 20 mg IV NOW JAVIER Last Admin: 09/04/24 00:23 Dose: 20 mg Documented By: ODILIA Discontinued Medications Diphenhydramine HCl (Diphenhydramine 50 Mg/Ml Vial) 25 mg IV NOW ONE Stop: 09/04/24 00:12 Last Admin: 09/04/24 00:23 Dose: 25 mg Documented By: ODILIA Sodium Chloride (Normal Saline 0.9%) 1,000 mls @ 1,000 mls/hr IV BOLUS ONE Stop: 09/04/24 01:10 Last Admin: 09/04/24 00:24 Dose: 1,000 mls/hr Documented By: ODILIA Methylprednisolone (Methylprednisolone 125 Mg/2 Ml Vial) 125 mg IV NOW ONE Stop: 09/04/24 00:12 Last Admin: 09/04/24 00:23 Dose: 125 mg Documented By: ODILIA Vital Signs Vital signs: Vital Signs - 8 hr 09/03/24 23:23 09/04/24 00:53 09/04/24 01:00 Temperature 98.2 F Pulse Rate 87 71 Respiratory Rate 16 Blood Pressure 141/84 H 154/81 H Pulse Oximetry 98 98 Oxygen Delivery Method Room Air 09/04/24 01:00 Temperature Pulse Rate 72 Respiratory Rate 18 Blood Pressure Pulse Oximetry 98 Oxygen Delivery Method MDM - Allergic Reaction Differential Diagnosis Differential diagnosis: Likely anaphylaxis and allergic reaction Lab Data 09/04/24 00:30 09/04/24 00:30 Labs: Lab Results 09/04/24 Range/Units 00:30 WBC 12.5 H (4.5-11.0) X10^3/uL RBC 3.60 L (4.0-5.2) X10^6/uL Hgb 11.4 L (12.0-16.0) g/dL Hct 35.0 L (36-46) % MCV 97.2 (80-100) fL MCH 31.7 (26-34) PG MCHC 32.6 (30-36) % RDW 14.1 (11.6-14.8) % Plt Count 303 (150-400) X10^3/uL Neut % (Auto) 82.0 H (50-75) % Lymph % (Auto) 11.5 L (25-40) % [place] % (Auto) 5.5 (3-14) % Eos % (Auto) 0.7 L (2-4) % Baso % (Auto) 0.3 (0-2) % Neut # (Auto) 91899 H (8472-2291) /uL Lymph # (Auto) 1400 (6384-7210) /uL [place] # (Auto) 700 (0-900) /uL Eos # (Auto) 100 (0-450) /uL Baso # (Auto) 0 (0-100) /uL Sodium 132 L (137-145) mmol/L Potassium 4.1 (3.4-5.1) mmol/L Chloride 98 (98-107) mmol/L Carbon Dioxide 21 L (22-32) mmol/L BUN 17 (7-17) mg/dL Creatinine 1.12 H (0.52-1.04) mg/dL Estimated GFR 54 L (>60) mL/min BUN/Creatinine Ratio 15.2 (6-22) Glucose 97 (80-110) mg/dL Calcium 8.8 (8.4-10.2) mg/dL MDM Narrative Medical decision making narrative: 69-year-old female no significant past medical history presents to the emergency department for allergic reaction, states that she is allergic to bee stings as well as spider bites but did not have exposure of this. She believes it was secondary to eating crab, she states that at around 8:30 p.m. she started noticing urticarial rash and swelling to her bilateral upper and lower extremities, states it 5-10 minutes prior she was eating crab, has had crab before. Patient states that she took NyQuil immediately after given that was the only thing in her house that had antihistamines. Had improvement of symptoms at time of evaluation patient not meeting anaphylaxis criteria only having urticarial rash swelling. Patient protecting airway uvula midline tolerating secretions. Patient had steroids Benadryl Pepcid fluids with improvement of symptoms. Patient was given strict return precautions she verbalized understanding of this and agrees to being discharged home with outpatient follow up. Patient will be sent home with Benadryl Pepcid steroids EpiPen. Was instructed follow up with PCP and forestry and wildlife manager in outpatient setting understands and agrees with this plan Discharge Plan Departure Patient Disposition: Home Clinical Impression: Allergic reaction Instructions: DI for Anaphylaxis, DI for Hives Activity Restrictions/Additional Instructions: Please follow up with forestry and wildlife manager and primary care Please read the discharge instructions sheet carefully and bring all papers to all doctor follow-up visits, as it may contain information that your doctor may want to see. Disease processes change and evolve, if your symptoms worsen or if you develop any new symptoms that are concerning to you please return for evaluation. Your evaluation today does not show any evidence of any life- threatening/serious illnesses requiring admission to the hospital or surgery. Please follow-up with your doctor for re-evaluation in approximately 1 day. Seek immediate medical attention for any worrisome symptoms. *If you do not have a primary care provider please contact the [facility] Resource line at [phone]. They will ask some questions about your medical history and help get you set up with a doctor in the community. Prescriptions: New epinephrine [EpiPen] 0.3 mg/0.3 mL auto-injector 0.3 mg IM Q5-15M PRN (Reason: anaphylaxis) Qty: 2 2RF Rx Instructions: do not exceed 3 doses per episode prednisone 20 mg tablet 40 mg PO DAILY 5 Days Qty: 10 0RF famotidine [Pepcid] 20 mg tablet 20 mg PO DAILY 5 Days Qty: 5 0RF diphenhydramine HCl [Benadryl] 25 mg capsule 25 mg PO TID PRN (Reason: allergic reaction) 1 Days Qty: 3 0RF No Action albuterol sulfate 2.5 mg /3 mL (0.083 %) Solution For Nebulization 2.5 mg INHALATION Q4-6H PRN (Reason: Shortness Of Breath) hydrocodone-acetaminophen 10-325 mg Tablet 2 tab PO TID oxycodone-acetaminophen 10-325 mg Tablet 1 tab PO TID PRN (Reason: Pain) fluticasone propion-salmeterol [Advair Diskus] 500-50 mcg/dose Blister With Device 1 inh INHALATION BID PRN (Reason: Shortness Of Breath) losartan 50 mg Tablet 50 mg PO DAILY aspirin 81 mg Capsule 81 mg PO DAILY aspirin 81 mg Tablet,Delayed Release (Dr/Ec) 81 mg PO BID Qty: 60 0RF levothyroxine [Synthroid] 100 mcg Tablet 100 mcg PO DAILY metoprolol succinate 25 mg Tablet Extended Release 24 Hr 25 mg PO DAILY albuterol sulfate [ProAir HFA] 90 mcg/actuation Hfa Aerosol Inhaler 2 puff INHALATION Q4-6H PRN (Reason: Shortness Of Breath) ondansetron 4 mg Tablet,Disintegrating 4 mg PO QAM PRN (Reason: Nausea, vomiting) loratadine 10 mg Tablet 10 mg PO DAILY magnesium oxide 400 mg magnesium Capsule 500 mg PO DAILY Referrals: Madiha Elena ARNP [Primary Care Provider] - Stand Alone Forms: Patient Portal/API/Survey
[2024-09-04] MEDS: diphenhydrAMINE 50 MG/ML VIAL 25 MG IV (00:23)
[2024-09-04] MEDS: methylPREDNISolone 125 MG/2 ML VIAL IV (00:23)
[2024-09-04] MEDS: FAMOTIDINE 20 MG/2 ML VIAL IV (00:23)
[2024-09-04] MEDS: SODIUM CHLORIDE 0.9% 1,000 ML 1000 ML IV (00:24)
[2024-09-04 00:40] LABS: Add Manual Diff / Slide Review NO; Basophils Absolute Auto 0 /uL (0-100); Basophils Percent Auto 0.3 % (0-2); Eosinophils Absolute Auto 100 /uL (0-450); Eosinophils Percent Auto 0.7 % (2-4); Hemoglobin 11.4 g/dL (12.0-16.0); Lymphocytes Absolute Auto 1400 /uL (1100-4500); Lymphocytes Percent Auto 11.5 % (25-40); Mean Corpuscular HGB Conc 32.6 % (30-36); Mean Corpuscular Hemoglobin 31.7 PG (26-34); Mean Corpuscular Volume 97.2 fL (80-100); Monocytes Absolute Auto 700 /uL (0-900); Monocytes Percent Auto 5.5 % (3-14); Neutrophils Absolute Auto 10300 /uL (1500-7000); Platelet Count 303 X10^3/uL (150-400); Red Cell Distribution Width 14.1 % (11.6-14.8); White Blood Cell Count 12.5 X10^3/uL (4.5-11.0)
[2024-09-04 00:52] LABS: BUN Creatinine Ratio 15.2 (6-22); Blood Urea Nitrogen 17 mg/dL (7-17); Calcium 8.8 mg/dL (8.4-10.2); Carbon Dioxide 21 mmol/L (22-32); Chloride 98 mmol/L (98-107); Estimated Glomerular Filt Rate 54 mL/min (>60); Glucose 97 mg/dL (80-110); HEMOLYSIS < 15 (0-50); Potassium 4.1 mmol/L (3.4-5.1); Sodium 132 mmol/L (137-145)
[2024-09-04 00:53] VITALS: PULSE 71; O2SAT 98
[2024-09-04 01:00] VITALS: BP 154/81; PULSE 72; RESP 18; O2SAT 98
[2024-09-04 01:30] VITALS: BP 135/73; PULSE 78; O2SAT 98
== END 2024-09-04 01:41 | disposition home or self-care (01) ==
PROVIDERS: Emergency Provider Student in an Organized Health Care Education/Training Program; PCP Nurse Practitioner Family
DX: T78.40XA Allergy, unspecified, initial encounter (principal); E03.9 Hypothyroidism, unspecified; I10 Essential (primary) hypertension; Z79.890 Hormone replacement therapy; Z87.891 Personal history of nicotine dependence
CPT/HCPCS: 36415; 80048; 85025; 96361; 96374; 96375; 99284; J1200; J2919

== ENCOUNTER → 2025-04-08 15:12 | Outpatient (CLI) | payer MEDICARE, OTHER, SELFPAY ==
[2023-03-19 11:35] VITALS: BMI 20.5
--- NOTE | 2025-04-08 15:16 | DI.CT.S_ITS ---
PROCEDURE: CT HIP RIGHT WITHOUT CON INDICATIONS: PAIN IN R HIP TECHNIQUE: Noncontrast 3 mm axial sections acquired through the bony pelvis, with coronal and sagittal reformatting. COMPARISON: [facility], CR, XR PELVIS WITH LATERAL HIP RIGHT, 03/31/2025, 9:53. FINDINGS: Right total hip arthroplasty. No fracture dislocation or bone erosion evident. No evidence of hardware failure. Streak artifact from hardware degrades examination and decreases sensitivity. Mild osteoarthritis of the left hip. No hip effusion or soft tissue mass. Mild diverticulosis. Partially imaged lumbar spinal fusion hardware. Sacroiliac joints are unremarkable. No free intraperitoneal fluid. IMPRESSION: No hardware failure. Dictated by: Vadim Mccall M.D. on 04/08/2025 at 17:27 Approved by: Vadim Mccall M.D. on 04/08/2025 at 17:29
== END ==
PROVIDERS: Referring Provider Orthopaedic Surgery; Visit Provider Orthopaedic Surgery
DX: M16.12 Unilateral primary osteoarthritis, left hip (principal); M25.551 Pain in right hip; Z96.641 Presence of right artificial hip joint; Z98.1 Arthrodesis status
CPT/HCPCS: 73700